=== PATIENT | female | born 1945 | race African-American/Black ===

== ENCOUNTER 2023-05-24 04:51 | Inpatient (IN) | payer OTHER, SELFPAY ==
[2023-05-23 23:17] VITALS: BMI 31.2
[2023-05-23 23:22] VITALS: BP 165/108
[2023-05-23 23:52] LABS: % Basophils 0.7 % (0-2); % Eosinophils 0.5 % (0-6); % Immature Granulocytes 0.3 % (0-0.5); % Lymphocytes 15.4 % (20.5-51.1); % Monocytes 9.3 % (1.7-9.3); % Neutrophils 73.8 % (42.2-75.2); Absolute Lymphocytes 0.9 10^3/uL (1.2-3.4); Absolute Monocytes 0.6 10^3/uL (0.1-0.6); Absolute Neutrophils 4.5 10^3/uL (1.4-6.5); Hematocrit 36.5 % (37.0-47.0); Mean Corp Hgb Conc. 35.6 g/dL (33.0-37.0); Mean Corpuscular Hgb 32.6 pg (27.0-31.0); Mean Corpuscular Volume 91.5 fL (81.0-99.0); Mean Platelet Volume 10.1 fL (7.4-10.4); Nucleated Red Blood Cells % 0 %; Platelet Count 189 10^3/uL (130-400); Red Blood Cell Count 3.99 10^6/uL (4.20-5.40); Red Cell Dist. Width 12.1 % (11.5-14.5)
[2023-05-24] VITALS (12 sets, daily range): BP systolic 119–175; BP diastolic 68–107
[2023-05-24 00:06] LABS: ALT (SGPT) 22 U/L (0-35); AST (SGOT) 27 U/L (14-36); Albumin 4.8 g/dl (3.5-5.0); Alkaline Phosphatase 90 U/L (38-126); Blood Urea Nitrogen 37 mg/dl (7-17); Calcium 10.1 mg/dl (8.4-10.2); Carbon Dioxide 27 mmol/L (22-30); Chloride 101 mmol/L (98-107); Estimated Creatinine Clearance 25 ml/min; Glucose 125 mg/dl (70-99); Potassium 3.9 mmol/L (3.5-5.1); Sodium 136 mmol/L (135-145); Total Bilirubin 0.6 mg/dl (0.2-1.3)
--- NOTE | 2023-05-24 00:30 | ED.GENMED ---
History of Present Illness
<MARTHA Williamson - Last Filed: 05/24/23 05:11>
General
Chief Complaint: Vomiting Blood
Source: patient
Exam Limitations: none
Time Seen by Provider: 05/24/23 00:12
Nursing documentation reviewed up to this point in time: agreed with
Travel History
Have you had any contact with someone who has COVID-19?: No
Do you have any symptoms of coronavirus? Fever > 100 degrees, chills, cough, shortness of breath, sore throat, loss of taste or smell, muscle aches, or headache?: No
History of Present Illness
History of Present Illness:
This is a 77 YOF with PMHx of GI bleeds, SBO, diverticulosis, HTN, HLD, Joyce's esophagus, colon cancer presenting for intractable vomiting with coffee ground emesis and abd pain. Pt mentioned nausea and lack of appetite began early evening of
05/22/23 and started with vomiting at 2300. Pt mentioned she has vomited approx [id number] most of yesterday and today. Hematemesis began around 1400 today, with greater than 1000cc coffee ground emesis. Abd pain cramping comes in waves, 9/10 in
severity and moderate epigastric burning pain. Accompanying bloating/distension. Pt mentioned having one previous episode like this in 2021, when she was dx with bowel obstruction and GI bleed. Pt had multiple BM today, normal texture, some
straining, denied any melena or hematochezia. Pt has not vomited since ED admit. Nausea is moderate at this time. Pt denied vision change, ear/eye/nose/throat pain, diff swallowing, sensory deficits. Physical exam significant for generalized abd
tenderness, worsened in LUQ and LLQ. Allergies to amlopdine, simvastatin.
Past History
<MARTHA Williamson - Last Filed: 05/24/23 05:11>
Past History
ED Past Medical History: Asthma, Cancer, GERD, HTN, Hypercholesterolemia, Other and Other
ED Past Surgical History: Appendectomy, Bowel resection and Gynecological
Social History
Tobacco: Non-smoker
Alcohol: None
Drug: None
Personal: Single
Living: alone
Employment: Retired
Family History
Family History: Other
Review of Systems
<Beatrice Moreno [facility] - Last Filed: 05/24/23 05:11>
Review of Systems
Allergies reviewed?: Yes
All Other Systems: ROS reviewed and negative except as documented in HPI and ROS
Constitutional: Reports fatigue
EENT: Reports no symptoms
Respiratory: Reports no symptoms
Cardiac: Reports no symptoms
ABD/GI: Reports abdominal pain and vomiting
: Reports no symptoms
Musculoskeletal: Reports no symptoms
Skin: Reports no symptoms
Neurological: Reports dizzy and weakness
Hematologic/Lymphatic: Reports bleeding
Psychiatric: Reports no symptoms
Phy Exam
<Beatrice Moreno [facility] - Last Filed: 05/24/23 05:11>
General Physical Exam
General Presentation: mild distress
General age: appears stated age
General Skin: warm, dry and pale
General Habitus: normal
General Mental: alert
General Hydration: dry mucous membranes
ENT Exam
ENT Exam: EOMI and neck supple
Eye Exam
Eye Exam: PERRL and EOMI
Cardiovascular Exam
Cardiovascular Exam: regular rate/rhythm, no edema, no gallop, no JVD, no murmur and normal peripheral pulses
Pulmonary Exam
Pulmonary Exam: lungs clear, no respiratory distress, no rales, chest non tender, no crackles, no rhonchi, no stridor, no wheezing and no cough
Gastrointestinal Exam
Gastrointestinal Exam: normal bowel sounds, soft, no pulsatile mass, distended, no masses and tender
Neurological Exam
Neurological Exam: alert, oriented x3, no motor deficits, no sensory deficits and speech normal
Musculoskeletal Exam
Musculoskeletal Exam: neuro vasc intact
Skin Exam
Skin Exam: warm/dry and pallor
Psychiatric Exam
Psychiatric Exam: normal mood/affect
Course
<MARTHA Williamson - Last Filed: 05/24/23 05:11>
Orders/Labs/Results
Orders:
Orders
05/23/23 23:42
Cardiac Monitoring- Treatment ONCE
Pulse Ox/spot Check [RESP] Urgent
Quantity: 1
Special Instructions: ON ROOM AIR
05/23/23 23:45
Type+Screen Urgent
Complete Blood Count/With Diff Urgent
Comprehensive Metabolic Panel Urgent
05/23/23 23:59
Electrocardiogram (*1) Urgent
Reason for Study: Chest Pain
EKG- Treatment ONCE
05/24/23 01:36
IV Insert/Care/Rem.- Treatment PRN
Octreotide [Sandostatin] 50 mcg IV NOW STA
Pantoprazole 80 mg/100 ml Nss [Protonix] 80 mg in 100 ml IV NOW
Pantoprazole [Protonix IV] 80 mg IV NOW STA
05/24/23 01:37
0.9% Sodium Chloride 1000 ml [Nss] 1,000 ml IV BOLUS
CR Obstruct Series W/pa Chest Urgent
Comment:
Reason For Exam: Gi bleed, hx of SBO
05/24/23 01:38
Ondansetron Injectable [Zofran] 4 mg IV NOW STA
05/24/23 01:41
Troponin I Urgent
05/24/23 04:35
Admit/Transfer Patient As Directed
Co-Sign Provider:
Level of Care: Inpatient admission
Assign to:: Telemetry
Physician / Group: Graham
Diagnosis: SBO, Hematemesis
Reason for Telemetry: Arrhythmia
Date to Stop Telemetry: 05/27/23
Time to Stop Telemetry: 11:00
Reason for Hospitalization: SBO, Hematemesis
Expected length of stay greater than two midnights?: Yes
ELOS- Estimated Length of Stay in days: 3
I certify the patient meets the requirements for IP care: Yes
05/24/23 04:36
Code Status As Directed
Resuscitation Status: Full Code
05/27/23 11:00
DC Protocol for Telemetry ONCE
Abnormal Lab Results
05/23/23
23:45
RBC 3.99 L 10^6/uL
(4.20-5.40)
Hct 36.5 L %
(37.0-47.0)
MCH 32.6 H pg
(27.0-31.0)
Absolute Lymphs (auto) 0.9 L 10^3/uL
(1.2-3.4)
Lymphocytes % 15.4 L %
(20.5-51.1)
BUN 37 H mg/dl
(7-17)
Creatinine 1.6 H mg/dL
(0.6-1.0)
Glucose 125 H mg/dl
(70-99)
05/23/23 23:45
05/23/23 23:45
Vital Signs
Initial and Last Documented VS:
Initial Vital Signs
Temp Pulse Resp BP Pulse Ox
98.7 F 108 20 165/108 96
05/23/23 23:22 05/23/23 23:22 05/23/23 23:22 05/23/23 23:22 05/23/23 23:22
Last Documented Vital Signs
Temp Pulse Resp BP Pulse Ox
98.7 F 97 16 175/85 96
05/23/23 23:22 05/24/23 02:00 05/24/23 02:00 05/24/23 02:00 05/23/23 23:22
Sayralt;Deo Oleary, DO - Last Filed: 05/24/23 02:49>
Orders/Labs/Results
Orders:
Orders
05/23/23 23:42
Cardiac Monitoring- Treatment ONCE
Pulse Ox/spot Check [RESP] Urgent
Quantity: 1
Special Instructions: ON ROOM AIR
05/23/23 23:45
Type+Screen Urgent
Complete Blood Count/With Diff Urgent
Comprehensive Metabolic Panel Urgent
05/23/23 23:59
Electrocardiogram (*1) Urgent
Reason for Study: Chest Pain
EKG- Treatment ONCE
05/24/23 01:36
IV Insert/Care/Rem.- Treatment PRN
Octreotide [Sandostatin] 50 mcg IV NOW STA
Pantoprazole 80 mg/100 ml Nss [Protonix] 80 mg in 100 ml IV NOW
Pantoprazole [Protonix IV] 80 mg IV NOW STA
05/24/23 01:37
0.9% Sodium Chloride 1000 ml [Nss] 1,000 ml IV BOLUS
CR Obstruct Series W/pa Chest Urgent
Comment:
Reason For Exam: Gi bleed, hx of SBO
05/24/23 01:38
Ondansetron Injectable [Zofran] 4 mg IV NOW STA
05/24/23 01:41
Troponin I Urgent
05/24/23 04:35
Admit/Transfer Patient As Directed
Co-Sign Provider:
Level of Care: Inpatient admission
Assign to:: Telemetry
Physician / Group: Graham
Diagnosis: SBO, Hematemesis
Reason for Telemetry: Arrhythmia
Date to Stop Telemetry: 05/27/23
Time to Stop Telemetry: 11:00
Reason for Hospitalization: SBO, Hematemesis
Expected length of stay greater than two midnights?: Yes
ELOS- Estimated Length of Stay in days: 3
I certify the patient meets the requirements for IP care: Yes
05/24/23 04:36
Code Status As Directed
Resuscitation Status: Full Code
05/27/23 11:00
DC Protocol for Telemetry ONCE
Abnormal Lab Results
05/23/23
23:45
RBC 3.99 L 10^6/uL
(4.20-5.40)
Hct 36.5 L %
(37.0-47.0)
MCH 32.6 H pg
(27.0-31.0)
Absolute Lymphs (auto) 0.9 L 10^3/uL
(1.2-3.4)
Lymphocytes % 15.4 L %
(20.5-51.1)
BUN 37 H mg/dl
(7-17)
Creatinine 1.6 H mg/dL
(0.6-1.0)
Glucose 125 H mg/dl
(70-99)
05/23/23 23:45
05/23/23 23:45
Vital Signs
Initial and Last Documented VS:
Initial Vital Signs
Temp Pulse Resp BP Pulse Ox
98.7 F 108 20 165/108 96
05/23/23 23:22 05/23/23 23:22 05/23/23 23:22 05/23/23 23:22 05/23/23 23:22
Last Documented Vital Signs
Temp Pulse Resp BP Pulse Ox
98.7 F 97 16 175/85 96
05/23/23 23:22 05/24/23 02:00 05/24/23 02:00 05/24/23 02:00 05/23/23 23:22
Sayralt;MARTHA Williamson - Last Filed: 05/24/23 05:11>
MDM/Problems Addressed
Differential Diagnosis Includes:
Bowel obstruction, Esophageal tear, peptic ulcer, duodenal ulcer
MDM/Problems Addressed:
77 YOF presenting with coffee ground emesis
Chronic conditions affecting care:
Diverticulosis, sigmoidectomy, previous bowel obstruction
Acute Exacerbation and/or Progression of Chronic Illness:
Diverticulosis, sigmoidectomy, previous bowel obstruction
<MARTHA Williamson - Last Filed: 05/24/23 05:11>
*Pulse Oximetry
Patient hypoxic: no
*Critical Care Note
Total Time (30-74mins, 75-104mins- exclusive of procedures): Not Applicable
<Deo Oleary DO - Last Filed: 05/24/23 02:49>
*Radiology
Radiology exam reviewed: preliminary read by ED provider (Bowel obstruction as evidenced by air-fluid level)
<Deo Oleary DO - Last Filed: 05/24/23 02:49>
Patient Management
Social determinants of health affecting care: Strong social support
Discussion with other providers: Hospitalist
<MARTHA Williamson - Last Filed: 05/24/23 05:11>
Update Note
Update Note:
05/24/23 0300: Pt is resting comfortably in bed. Pt admits that nausea, epigastric pain, and acid reflux are much improved. Pt informed of bowel obstruction via imaging and admission. Pt is agreeable to this plan. All pt questions answered.
ED Attending Note
<MARTHA Williamson - Last Filed: 05/24/23 05:11>
-
Portions of this chart may have been created with voice recognition software.� Occasional wrong word or��sound alike� substitutions may have occurred due to the inherent limitations of voice recognition software.
<Deo Oleary DO - Last Filed: 05/24/23 02:49>
ED Attending Note
Patient seen and examined by attending physician: Yes
I performed the substantive portion of visit, reviewed & personally made and approve the management plan that is documented in note by myself or OVIDIO.: Yes
ED Attending Note:
Pleasant 77-year-old female presents with intractable vomiting with coffee-ground emesis. Has been present for the last 2 days. Patient states that today around 2 PM, she developed hematemesis. She reports that these symptoms are similar to
previous episodes of small bowel obstruction. Patient does have a history of colon cancer, GI bleeds with small bowel obstruction., Patient denies chest pain or shortness of breath. Denies fever, chills, current vomiting but does report some
nausea. Patient was seen in conjunction with the PA student. I have reviewed and agree with the history and treatment plan presented. On my independent physical exam, patient is awake, alert, and oriented x3, minimal acute distress. Heart is
regular rate and rhythm. Lungs are clear to auscultation bilaterally without wheezes rales or rhonchi. Abdomen soft with tenderness to palpation and slight distention. Moves all 4 extremities.
Discharge Plan
Departure
Patient Disposition: Admit
Date of Disposition: 05/24/23
Time of Disposition: 02:48
Admit to: Telemetry
Presentation/result/management discussed w/ accepting MD/DO: Hospitalist
Condition: Good
Discharge Problem:
Bowel obstruction, Acute GI bleeding
Interventions
Interventions:
*Risk Screen - Suicide Last Done: 05/23/23 23:22
*General Assessment Last Done: 05/23/23 23:21
*Neglect/Abuse Screening Last Done: 05/23/23 23:21
*ED COVID-19 Vaccine History Last Done: 05/23/23 23:17
QO-Tnmjkw-Ixpnajbznn Assessment Last Done: 05/23/23 23:50
ED- Cardiac Assessment Last Done: 05/23/23 23:50
ED- Pulmonary Assessment Last Done: 05/23/23 23:50
[2023-05-24] MEDS: NSS 1000 IV (02:01)
[2023-05-24] MEDS: PROTONIX IV 80 MG IV (02:03)
[2023-05-24] MEDS: ZOFRAN 4 MG IV ×2 (02:05→19:43)
[2023-05-24] MEDS: SANDOSTATIN 50 MCG IV (02:07)
[2023-05-24 02:24] LABS: Troponin I < 0.012 ng/ml
[2023-05-24] MEDS: PROTONIX 100 IV (02:28)
--- NOTE | 2023-05-24 04:39 | HPS.HSE ---
Family Physician
-
Family Physician: Nati Dyer
Chief Complaint
-
N/V, hematemesis
History of Present Illness
Patient is a 77y F with PMH significant for hypertension, CKD and prior SBO complicated by Annette Farrell tears / GI Bleeding who presents to ED complaining of N/V and hematemesis. Patient states that she started with crampy abdominal pain on
Monday AM followed by multiple episodes of N/V. She has had persistent N/V for the past 48 hours. On Monday evening, patient noted that emesis started to appear grossly bloody. She estimates about 1/2 of an emesis bag full of blood in total.
Patient presented to the ED for further evaluation and treatment.
Patient has prior history of similar episodes. Her last such episode was 07/2021 and she was admitted here at that time.
Patient was treated in the ED with pain control and antiemetics and her symptoms have improved. She has had no emesis since arrival here.
Patient states that her last BM was yesterday AM. She has passed no flatus today.
Medical History
Past Medical History
Past Medical History: Reports Other
Additional Past Medical History:
Hypertension
Colon Cancer s/p Resection
Recurrent SBO
GERD
CKD III
Asthma
Past Surgical History: Reports Other
Additional Past Surgical History:
Partial Colon Resection
Bilateral Tubal Ligation
Appendectomy
Social History
Tobacco: Former Smoker (Quit smoking at age 34. )
Alcohol: None
Family History
Family History: Other (Father: Heart Disease Mother: Cerebral Aneurysm)
Allergies / Home Medications
Allergies reflects when Allergies were last updated in [employer]
Home Medications with original date entered in [employer]
Allergy/Medication List:
Allergies
Allergy/AdvReac Type Severity Reaction Status Date / Time
amlodipine Allergy Swelling Verified 05/23/23 23:17
simvastatin Allergy Unknown Verified 05/23/23 23:17
Home Medications
albuterol sulfate 90 mcg/actuation aerosol inhaler 2 puff inhalation R Q4HPRN PRN sob 07/28/17
dapagliflozin propanediol 10 mg tablet (Farxiga) 10 mg PO DAILY 05/23/23
coenzyme Q10 100 mg capsule (Co Q-10) 100 mg PO DAILY 05/24/23
esomeprazole magnesium 20 mg capsule,delayed release 20 mg PO DAILY 05/24/23
famotidine 20 mg tablet 20 mg PO HS 05/24/23
fluticasone furoate 100 mcg-vilanterol 25 mcg/dose inhalation powder (Breo Ellipta) 1 inh inhalation DAILY 05/24/23
lisinopril 20 mg-hydrochlorothiazide 12.5 mg tablet 2 tab PO DAILY 05/24/23
mecobalamin (vitamin B12) 1,000 mcg chewable tablet (B12 Active) 1,000 mcg PO DAILY 05/24/23
metoprolol succinate 25 mg tablet,extended release 24 hr 25 mg PO DAILY 05/24/23
multivitamin 2 tab PO DAILY 05/24/23
rosuvastatin 20 mg tablet 20 mg PO DAILY 05/24/23
Review of Systems
-
History Source: Patient
A 12 point ROS was completed and negative except as noted: Yes
Constitutional: Reports Fatigue; Denies Fever or Chills
Respiratory: Denies Cough or Trouble Breathing
Cardiac: Denies Chest Pain or Palpitations
Abdomen/GI: Reports Abdominal Pain, Nausea, Vomiting and Constipated; Denies Diarrhea
: Denies Dysuria or Frequency
Neurological: Denies Dizzy or Headache
Psych: Denies Depression or Anxiety
Physical Exam
Vital Signs
Vital Signs
Temp Pulse Resp BP Pulse Ox
98.7 F 97 16 175/85 96
05/23/23 23:22 05/24/23 02:00 05/24/23 02:00 05/24/23 02:00 05/23/23 23:22
Physical Exam
General: Other (77y F in no acute distress at present.)
HEENT: Moist mucous membranes and PERRLA
Respiratory: Clear; No Wheezes, Rales or Rhonchi
Cardiac: S1/S2 and Regular Rhythm; No Murmur
GI: Soft and Other (Softly distended. Mildly / diffusely tender. Bowel sound decreased but present.)
Musculoskeletal: No Clubbing, No Cyanosis and No Edema
Neuro: AO x 3
Laboratory Results
-
05/23/23 23:45
05/23/23 23:45
Laboratory Results
Total Bilirubin 0.6 mg/dl (0.2-1.3) 05/23/23 23:45
AST 27 U/L (14-36) 05/23/23 23:45
ALT 22 U/L (0-35) 05/23/23 23:45
Alkaline Phosphatase 90 U/L (38-126) 05/23/23 23:45
Troponin I < 0.012 ng/ml 05/24/23 01:41
Impression/Plan
-
A/P: Patient is a 77y F with PMH significant for hyprtension, CKD and recurrent SBO who presents to ED complaining of N/V x 2 days and development of hematemesis this evening.
SBO
Intractable N/V secondary to the above
- Admit for further evaluation and treatment.
- Continue supportive care with NPO, IVFs, antiemetics and pain control.
- No N/V since arrival and will avoid NG decompression if possible due to hematemesis / risk of UGI injury.
- Surgery evaluation for additional recommendations.
- Patient has not previously required intervention to resolve SBO.
- Follow for flatus, BM, improvement in symptoms.
Hematemesis
GERD
- Likely secondary to mucosal injury from intractable N/V - Annette-Farrell tear.
- Prior h/o same.
- IV PPI infusion.
- GI evaluation for additional recommendations.
- Treat SBO / intractable emesis as noted above.
- Follow H&H for any changes and transfuse if needed (initial Hgb = 13).
Benign Hypertension
- BP elevated in the ED - likely due to acute illness + lack of meds x 2 days.
- IV hydralazine while NPO.
- Resume usual BP meds once able.
CKD III
- Stable. Renal function is at / near known baseline.
- Hold Farxiga acutely (new med started only 5 days ago).
- Follow for changes in renal function.
Mild Intermittent Asthma
- Stable. Albuterol PRN.
DVT Prophylaxis: SCDs
Code Status: Full
[2023-05-24] MEDS: LR 1000 IV ×2 (05:44→15:58)
[2023-05-24 06:54] LABS: Hematocrit 33.4 % (37.0-47.0); Hemoglobin 11.3 g/dL (12.0-16.0); Mean Corp Hgb Conc. 33.8 g/dL (33.0-37.0); Mean Corpuscular Hgb 32.1 pg (27.0-31.0); Mean Corpuscular Volume 94.9 fL (81.0-99.0); Mean Platelet Volume 10.2 fL (7.4-10.4); Platelet Count 165 10^3/uL (130-400); Red Blood Cell Count 3.52 10^6/uL (4.20-5.40); Red Cell Dist. Width 12.2 % (11.5-14.5); White Blood Cell Count 4.2 10^3/uL (4.8-10.8)
[2023-05-24 07:15] LABS: Blood Urea Nitrogen 41 mg/dl (7-17); Calcium 9.5 mg/dl (8.4-10.2); Carbon Dioxide 26 mmol/L (22-30); Chloride 101 mmol/L (98-107); Estimated Creatinine Clearance 23 ml/min; Glucose 111 mg/dl (70-99); Potassium 3.6 mmol/L (3.5-5.1); Sodium 139 mmol/L (135-145); eGFR 28.31
--- NOTE | 2023-05-24 07:18 | CON.GI ---
Addendum entered and electronically signed by Catalina Linares MD 05/24/23 17:22:
I saw and examined the patient.
The LOAN OFFICER or PA's note was reviewed and I agree with the note.
Comment: 77-year-old female who is very well-known to me as outpatient , personal history of colon cancer status post sigmoid resection 91, history of GERD, Annette-Lanier tear, history of partial small bowel obstructions in the past presenting with
abdominal cramping, nausea and vomiting and CGE. Initially she had biliary emesis followed by CGE. No further episodes since. Similar to her previous admission when she had Partial small bowel obstruction,upper endoscopy at that time showed
Annette-Lanier tear . She is on Nexium on a daily basis. Currently continues to have some abdominal cramping but no vomiting. Since my visit, patient looks like he had cold symptoms and NG tube has been placed.
-Partial small bowel obstruction-abdominal cramping, nausea and vomiting previous similar episodes multiple electrolytes and replete.
currently with NG decompression
Monitor electrolytes and replete
Management per surgery
-1 episode of possible coffee-ground emesis
No further episodes, hemoglobin stable
Protonix IV twice daily
monitor H&H and transfuse if needed
No plans for upper endoscopy at this time.
Will follow for now
Original Note:
Consultation
-
Date/Time Consultation Requested: 05/24/23 @ 05:29
Date/Time Consultation Performed: 05/24/23 @ 09:00
Requesting Provider: Dr. Stevenson
Performing Provider: GENE Gilmore; Dr. Linares
Reason for Consultation: Hematemesis / Prob MW tear
Medical History
Chief Complaint / HPI
Chief Complaint: nausea, vomiting, hematemesis
History of Present Illness:
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
small bowel obstruction in 2019 and 2021 manage without surgical intervention, who presented to the ER with complaints of nausea, vomiting, and hematemesis. We are being asked to evaluate for hematemesis and probable MWT. Of note the patient is
known to Dr. Linares in the office last seen in March for routine care. At that time she had been doing well. The patient reports on Monday she developed significant nausea and vomiting with multiple episodes. She notes initially it was just
bilious emesis but did notice some blood/coffee-ground emesis yesterday. She admits this is similar to prior episodes of small bowel obstruction in the past. She does also admit to lower abdominal pain with cramping. She reports she has had
formed bowel movements most recently as of yesterday but notes that she did have an increased amount up to 6 times yesterday. She does take MiraLax daily for chronic constipation. She denies any melena or hematochezia. She denies any fevers or
chills. She denies any recent antibiotic use. She does note that she started on Farxiga about 5 days ago otherwise no new medications. She denies any unintentional weight loss, but has cut out sugars and has been losing some weight intentionally.
She reports prior to the onset of symptoms her appetite was okay. Her reflux is well-managed with esomeprazole in the morning and famotidine at night. She otherwise denies any dysphagia, odynophagia, reflux, chest pain, or shortness of breath.
Last EGD and colonoscopy as noted below. She denies alcohol use. She denies any significant NSAID use. She is not on blood thinners. Routine labs in the ER showed a Hgb 13.0, BUN 41, creatinine 1.8 on admission. Obstruction series on admission
showing nonspecific small bowel air-fluid filled levels without small bowel dilation with paucity of large bowel gas. Additional x-ray imaging of the abdomen was obtained with report pending. NG tube was deferred as she her nausea and vomiting had
subsided. She was started on IV fluids, PPI drip,. Analgesics, and admitted for further evaluation by GI and general surgery.
Past Medical History
Past Medical History: Asthma, Cancer (colon cancer s/p sigmoid resection in 1990), GERD, HTN, Hypercholesterolemia and Other (History of partial small bowel obstruction in 2019 and 2021 managed without surgical intervention, history of Joyce's
esophagus, Annette-Lanier tear/upper GI bleed, chronic constipation, chronic anemia)
Past Surgical History: Bowel Resection (Sigmoid resection), Gynecological (Bilateral tubal ligation) and Other (Appendectomy with abscess)
Social History
Tobacco: Non-Smoker
Alcohol: None
Drug: None
Family History
Family History: Reviewed & Not Pertinent
Allergies / Home Medications
Allergy/AdvReac Type Severity Reaction Status Date / Time
amlodipine Allergy Swelling Verified 05/23/23 23:17
simvastatin Allergy Unknown Verified 05/23/23 23:17
Medication Instructions Recorded
albuterol sulfate 90 mcg/actuation 2 puff inhalation R Q4HPRN PRN sob 07/28/17
aerosol inhaler
dapagliflozin propanediol 10 mg 10 mg PO DAILY 05/23/23
tablet (Farxiga)
coenzyme Q10 100 mg capsule (Co 100 mg PO DAILY 05/24/23
Q-10)
esomeprazole magnesium 20 mg 20 mg PO DAILY 05/24/23
capsule,delayed release
famotidine 20 mg tablet 20 mg PO HS 05/24/23
fluticasone furoate 100 1 inh inhalation DAILY 05/24/23
mcg-vilanterol 25 mcg/dose
inhalation powder (Breo Ellipta)
lisinopril 20 2 tab PO DAILY 05/24/23
mg-hydrochlorothiazide 12.5 mg
tablet
mecobalamin (vitamin B12) 1,000 1,000 mcg PO DAILY 05/24/23
mcg chewable tablet (B12 Active)
metoprolol succinate 25 mg 25 mg PO DAILY 05/24/23
tablet,extended release 24 hr
multivitamin 2 tab PO DAILY 05/24/23
rosuvastatin 20 mg tablet 20 mg PO DAILY 05/24/23
Review of Systems
-
History Source: Patient
Constitutional: Reports Weight Loss (Intentional)
EENT: Reports No Symptoms
Respiratory: Reports No Symptoms
Cardiac: Reports No Symptoms
Abdomen/GI: Reports Abdominal Pain, Nausea, Vomiting and Other (Coffee-ground emesis)
: Reports No Symptoms
Musculoskeletal: Reports No Symptoms
Skin: Reports No Symptoms
Neurological: Reports No Symptoms
Vital Signs
Temp Pulse Resp BP Pulse Ox
98.7 F 87 15 131/72 96
05/23/23 23:22 05/24/23 06:15 05/24/23 06:15 05/24/23 06:00 05/24/23 06:15
Physical Exam
Exam
General: Well Developed, Well Nourished and No Apparent Distress
HEENT: Normocephalic, Anicteric and Atraumatic
Respiratory: Clear
Cardiac: S1/S2 and Regular Rhythm
Breast: Deferred by me
GI: Soft, Tender (Generalized mild abdominal tenderness throughout), Distended and Other (Hypoactive bowel sounds)
Rectal: Deferred by Provider
Musculoskeletal: No Edema
Skin: Warm and Dry
Neuro: Awake, Alert and Oriented
Psych: Calm
Results
WBC 4.2 10^3/uL (4.8-10.8) L 05/24/23 06:34
Hgb 11.3 g/dL (12.0-16.0) L 05/24/23 06:34
Hct 33.4 % (37.0-47.0) L 05/24/23 06:34
MCV 94.9 fL (81.0-99.0) 05/24/23 06:34
Plt Count 165 10^3/uL (130-400) 05/24/23 06:34
Absolute Neuts (auto) 4.5 10^3/uL (1.4-6.5) 05/23/23 23:45
Sodium 139 mmol/L (135-145) 05/24/23 06:34
Potassium 3.6 mmol/L (3.5-5.1) 05/24/23 06:34
Chloride 101 mmol/L (98-107) 05/24/23 06:34
Carbon Dioxide 26 mmol/L (22-30) 05/24/23 06:34
BUN 41 mg/dl (7-17) H 05/24/23 06:34
Creatinine 1.8 mg/dL (0.6-1.0) H 05/24/23 06:34
Calcium 9.5 mg/dl (8.4-10.2) 05/24/23 06:34
Total Bilirubin 0.6 mg/dl (0.2-1.3) 05/23/23 23:45
AST 27 U/L (14-36) 05/23/23 23:45
ALT 22 U/L (0-35) 05/23/23 23:45
Alkaline Phosphatase 90 U/L (38-126) 05/23/23 23:45
Diagnostic Image Results:
05/24/2023 obstruction series: IMPRESSION: No acute cardiopulmonary process. Nonspecific small bowel air-fluid levels without small bowel dilatation. Paucity of large bowel gas.
Prior GI Procedures:
EGD: 05/11/2021, Dr. Linares: Rule duodenum, multiple gastric polyps. Medium size hiatal hernia. Esophageal mucosal changes secondary to established segment Joyce's esophagus. No gross lesions in the entire esophagus. Path showing fundic land
polyps. Esophageal biopsies negative for Joyce's esophagus, consistent with mild acute/chronic inflammation.
01/01/2018 Dr. Linares: Normal examined duodenum. Multiple gastric polyps. Biopsied. Medium-sized hiatal hernia. Esophageal mucosal changes suspicious for sort-segment Joyce's esophagus. Biopsied. Path negative for Joyce's, h pylori; +fundic
gland polyps
Colonoscopy: 05/01/2021, Dr. Linares: Fair prep. Ileum appeared normal. One 4 mm adenomatous polyp in the cecum removed. One 2 mm adenomatous polyp in the transverse colon removed. One 4 mm adenomatous polyp in the transverse colon removed.
Diverticulosis in the rectosigmoid colon, descending colon, and at the splenic flexure and the transverse colon. Evidence of previous surgery in the sigmoid colon.
Assessment / Plan
-
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
small bowel obstruction in 2019 and 2021 manage without surgical intervention, who presented to the ER with complaints of nausea, vomiting, and hematemesis. We are being asked to evaluate for hematemesis and probable MWT. Acute onset of nausea and
vomiting with subsequent coffee-ground emesis at home similar to prior episodes of small bowel obstruction. Imaging showing air-fluid levels of small bowel. Currently improving with bowel rest. Hemoglobin is stable, with a mild drop possibly
secondary to dilution. No active signs of bleeding currently. Pending CT imaging as per surgery.
Problem list:
-nausea, vomiting, hematemesis
-small bowel obstruction, with hx SBO partial SBO in 2019 and 2021 managed conservatively
-JOSE on CKD?
-hx colon cancer s/p sigmoid resection 1990
-hx annette lanier tear/UGIB
-GERD
-chronic anemia
-chronic constipation on MiraLax
Other pertinent medical hx:
-Hx Joyce's esophagus
-HTN
-asthma
-HLD
Recommendations:
-Etiology of symptoms likely secondary to small bowel obstruction. No recurrent vomiting since admitted to the emergency room, with reported coffee-ground emesis at home but this developed after subsequent episodes of vomiting at home. Likely
Annette-Lanier tear versus gastric contents secondary to obstruction
-At this time we will continue to monitor H&H
-Conservative management for small bowel obstruction as per surgery. NG tube deferred as vomiting has resolved
-Await CT of the abdomen and pelvis
-Continue PPI, will change to IV twice daily
-PRN analgesics and antiemetics
-If concern for ongoing bleeding to consider EGD pending clinical course
-Avoid NSAIDs
-Resume bowel regimen once all the obstruction is resolved
-Will follow
Data Reviewed
-
Radiology: Report Reviewed by me
Old Records: Reviewed
-
-
Thank you for consultation and allowing me to participate in the patient's care. Please call the motion picture projectionist apprentice GI physician during the after hours with any questions or concerns.
--- NOTE | 2023-05-24 07:52 | W.PN.HOSP.TC ---
Today's Communication/Plan
-
see A/P
Assessment / Plan
Assessment / Plan
77y F with PMH significant for hypertension, CKD and prior SBO complicated by Annette Farrell tears / GI Bleeding who presented to ED complaining of N/V and hematemesis.�
Patient states that she started with crampy abdominal pain on Monday AM followed by multiple episodes of N/V.� She has had persistent N/V for the past 48 hours.� On Monday evening, patient noted that emesis started to appear grossly bloody.� She
estimates about 1/2 of an emesis bag full of blood in total.�
Patient has prior history of similar episodes.� Her last such episode was 07/2021 and she was admitted here at that time.
Patient was treated in the ED with pain control and antiemetics and her symptoms have improved.� She has had no emesis since arrival here.
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
A/P:
# SBO
# Intractable N/V secondary to the above
Continue supportive care with NPO, IVFs, antiemetics and pain control.
No N/V since arrival and will avoid NG decompression if possible due to hematemesis / risk of UGI injury.
Surgery evaluation for additional recommendations.
Patient has not previously required intervention to resolve SBO.
Follow for flatus, BM, improvement in symptoms.
Check follow up AXR
# Hematemesis likely secondary to mucosal injury from intractable N/V - Annette-Farrell tear. Prior h/o same.
# GERD
IV PPI infusion.
GI evaluation for additional recommendations.
Treat SBO / intractable emesis as noted above.
Follow H&H for any changes and transfuse if needed (initial Hgb = 13).
# Acute anemia likely due to blood loss from Hematemesis and dilutional from IVF
Trend Hgb
Transfuse if needed
# Benign Hypertension
BP elevated in the ED - likely due to acute illness + lack of meds x 2 days.
IV hydralazine while NPO.
Resume usual BP meds once able.
# CKD IV
Stable.� Renal function is at / near known baseline.
Hold Farxiga acutely (new med started only 5 days ago).
Follow for changes in renal function.
# Mild Intermittent Asthma�- Stable.�
Albuterol PRN.
DVT Prophylaxis:� SCDs
Code Status:� Full
Anticipated Discharge: 24 - 48 hours
Subjective/Interval History
-
Date of Service: May 24, 2023
Objective Data
-
Labs:
Laboratory Results
05/23/23 05/24/23
23:45 06:34
WBC 6.0 4.2 L
Hgb 13.0 11.3 L
Hct 36.5 L 33.4 L
Plt Count 189 165
Sodium 136 139
Potassium 3.9 3.6
Chloride 101 101
Carbon Dioxide 27 26
BUN 37 H 41 H
Creatinine 1.6 H 1.8 H
Glucose 125 H 111 H
Calcium 10.1 9.5
Total Bilirubin 0.6
AST 27
ALT 22
Alkaline Phosphatase 90
Vital Signs:
Vital Signs
Temp Pulse Resp BP Pulse Ox
37.1 C 87 15 131/72 96
05/23/23 23:22 05/24/23 06:15 05/24/23 06:15 05/24/23 06:00 05/24/23 06:15
I&O
05/23/23 05/24/23 05/25/23
06:59 06:59 06:59
Intake Total 1180 / 1180
Balance 1180 / 1180
Review of Systems
-
Abdomen/GI: Reports Abdominal Pain and Nausea; Denies Vomiting
Physical Exam
-
General: Well Developed, Well Nourished, No Apparent Distress, Comfortable and Conversant; Negative Respiratory Distress
HEENT: Normocephalic, Atraumatic, Nose Appears Normal and Ears Appear Normal; Negative Oxygen
Respiratory: Clear to Auscultation and Non Labored Respirations; Negative Accessory Resp Muscle Use
Cardiac: Regular Rhythm and S1/S2
GI: Soft, Nondistended, Tender (diffuse) and Other (diminished bowel sound)
Skin: Warm and Dry
Neuro: Awake, Alert, Oriented and AO x 3
Psych: Calm and Intact Judgement/Insight
Data Reviewed
-
Diagnostic Radiology: Report Reviewed by me
Labs: Labs Reviewed by me
[2023-05-24] MEDS: DILAUDID 0.5 MG IV ×3 (08:13→19:47)
[2023-05-24] MEDS: KCL 270 MEQ IV (08:31)
--- NOTE | 2023-05-24 08:40 | EDRN ---
JCL IV rate at 45 ml/ hr d/t vein irriation concerns
--- NOTE | 2023-05-24 08:50 | CON.GS ---
Consultation
-
Requesting Provider: Graham
Performing Provider: Gunner
Reason for Consultation: SBO
Medical History
-
Chief Complaint: Abd pain / n/v
History of Present Illness:
77F with acute onset abd pain with n/v and hematemesis. Began two night ago. Had a normal BM yesterday with some relief but pain quickly returned. Localized to RLQ and across the lower abd without radiation. Reports improvement in pain and nausea
this am. Had this issue in the past multiple times, most recent 08/13, always managed non-op. Last abd operation open appy with [facility] in 2014 for perforated appendicitis with abscess/phlegmon.
Past Medical History
Past Medical History: Asthma, Cancer (colon), GERD, HTN, Renal Failure and Other (recurrent SBO)
Past Surgical History: Gynecological (tubal) and Other (sigmoidectomy for CA, open appy as per HPI)
Social History
Tobacco: Non-Smoker
Alcohol: None
Drug: None
Family History
Family History: Reviewed & Noncontributory
Allergies / Home Medications
Allergy/AdvReac Type Severity Reaction Status Date / Time
amlodipine Allergy Swelling Verified 05/23/23 23:17
simvastatin Allergy Unknown Verified 05/23/23 23:17
Medication Instructions Recorded Confirmed Type
albuterol sulfate 90 mcg/actuation 2 puff inhalation R Q4HPRN PRN sob 07/28/17 08/07/21 History
aerosol inhaler
dapagliflozin propanediol 10 mg 10 mg PO DAILY 05/23/23 05/24/23 History
tablet (Farxiga)
coenzyme Q10 100 mg capsule (Co 100 mg PO DAILY 05/24/23 05/24/23 History
Q-10)
esomeprazole magnesium 20 mg 20 mg PO DAILY 05/24/23 05/24/23 History
capsule,delayed release
famotidine 20 mg tablet 20 mg PO HS 05/24/23 05/24/23 History
fluticasone furoate 100 1 inh inhalation DAILY 05/24/23 05/24/23 History
mcg-vilanterol 25 mcg/dose
inhalation powder (Breo Ellipta)
lisinopril 20 2 tab PO DAILY 05/24/23 05/24/23 History
mg-hydrochlorothiazide 12.5 mg
tablet
mecobalamin (vitamin B12) 1,000 1,000 mcg PO DAILY 05/24/23 05/24/23 History
mcg chewable tablet (B12 Active)
metoprolol succinate 25 mg 25 mg PO DAILY 05/24/23 05/24/23 History
tablet,extended release 24 hr
multivitamin 2 tab PO DAILY 05/24/23 05/24/23 History
rosuvastatin 20 mg tablet 20 mg PO DAILY 05/24/23 05/24/23 History
Review of Systems
-
A 10 point review of systems was completed, and was negative except as per HPI.
Physical Exam
Vital Signs
Temp Pulse Resp BP Pulse Ox
98.7 F 93 14 119/68 94
05/23/23 23:22 05/24/23 08:15 05/24/23 08:15 05/24/23 08:00 05/24/23 08:00
05/23/23 05/24/23 05/25/23
06:59 06:59 06:59
Actual Weight 72.4 kg
Body Mass Index (BMI) 31.2
Lab Results
05/24/23 06:34
05/24/23 06:34
WBC 4.2 10^3/uL (4.8-10.8) L 05/24/23 06:34
Hgb 11.3 g/dL (12.0-16.0) L 05/24/23 06:34
Hct 33.4 % (37.0-47.0) L 05/24/23 06:34
Plt Count 165 10^3/uL (130-400) 05/24/23 06:34
Abs Immat Gran (auto) 0.0 10^3/uL (0-0.05) 05/23/23 23:45
Neutrophils % 73.8 % (42.2-75.2) 05/23/23 23:45
Physical Exam
General: Well Developed, Well Nourished and No Apparent Distress
GI: Soft, Non Distended and Tender (mild ttp to rlq/suprapubic area without guarding)
Skin: Warm and Dry
Neuro: AO x 3
Psych: Calm
Data Reviewed
-
Radiology: Image Personally Visualized and interpreted, Report Reviewed by me, Discussed with Physician, Discussed with Nurse and Discussed with Patient
Labs: Labs Reviewed by me
Old Records: Reviewed
Assessment / Plan
-
77F with presumed SBO likely 2/2 adhesions
AFVSS, clinically improving however o bowel function since admit
Labs unremarkable, CKD noted
Flat plates of the abdomen show some dilated sb loops with air
Plan:
NPO/IVF
Defer NGT for now as she denies nausea
CT A/P with PO contrast
Serial exams
DVT ppx
Will follow
[2023-05-24] MEDS: OMNIPAQUE 50 ML PO (09:01)
--- NOTE | 2023-05-24 13:52 | W.PN.UPDATE ---
Update Note
Progress Note Update
CT reviewed. Dilated proximal small bowel and decompressed terminal ileum with stool in the colon and sb feces sign. No clear transition point though the RLQ is the area of concern. No signs of bowel threat or compromise. Cont trial of nonop mgmt
with NPO/IVF. F/U KUB ordered for the am to follow the contrast.
--- NOTE | 2023-05-24 15:56 | W.PN.UPDATE ---
Update Note
Progress Note Update
Pt seen and evaluated at bedside. Increased in lower abd cramping and nausea. No vomiting. No ROBF. Recommended NGT and pt agreed. Will order.
[2023-05-24] MEDS: PROTONIX IV 40 MG IV (19:42)
[2023-05-24] MEDS: NSS (PRESERVATIVE FREE) 10 ML IV (19:43)
[2023-05-24] MEDS: FLUSH (NSS) 2 FLUSH IV (19:45)
[2023-05-24] MEDS: CHLORASEPTIC/SORE THROAT SPRAY 1 SPRAY PO (19:58)
[2023-05-25] VITALS (11 sets, daily range): BP systolic 123–145; BP diastolic 68–89; BMI 31.5
[2023-05-25] MEDS: DILAUDID 0.5 MG IV ×2 (01:03→23:56)
[2023-05-25] MEDS: LR 1000 IV ×2 (01:04→11:24)
[2023-05-25] MEDS: FLUSH (NSS) 1 FLUSH IV (01:04)
[2023-05-25] MEDS: CHLORASEPTIC/SORE THROAT SPRAY 1 SPRAY PO ×2 (01:47→08:36)
[2023-05-25] MEDS: ZOFRAN 4 MG IV (01:48)
[2023-05-25 08:00] LABS: Hematocrit 30.8 % (37.0-47.0); Hemoglobin 10.4 g/dL (12.0-16.0); Mean Corp Hgb Conc. 33.8 g/dL (33.0-37.0); Mean Corpuscular Volume 94.8 fL (81.0-99.0); Mean Platelet Volume 10.5 fL (7.4-10.4); Platelet Count 164 10^3/uL (130-400); Red Blood Cell Count 3.25 10^6/uL (4.20-5.40); White Blood Cell Count 4.7 10^3/uL (4.8-10.8)
[2023-05-25] MEDS: NSS (PRESERVATIVE FREE) IV (08:36)
[2023-05-25] MEDS: PROTONIX IV IV (08:36)
--- NOTE | 2023-05-25 08:36 | W.PN.GS2 ---
Today's Communication / Plan
-
`
Assessment / Plan
-
Assessment: 77 y/o female with recurrent SBO
remote h/o laparotomy and bowel resection, more recent h/o open appy in 2017 - recurrent SBOs since open appy
AF - tachycardia noted
subjectively improved with NGT decompression
Plan: maintain NGT
follow up Abd xray today
Subjective Data
-
Date of Service: May 25, 2023
pt seen and examined
subjectively feeling better. not much flatus, but 2 loose BMs
distention but improving as well per patient
no N/V with NGT
Objective Data
-
Intake and Output
05/24/23 05/25/23 05/26/23
06:59 06:59 06:59
Intake Total 1180 / 1180 1200 / 1200
Output Total 300 / 300 150 / 150
Balance 1180 / 1180 900 / 900 -150 / -150
Intake:
IV fluids (Total) 1100 / 1100 1200 / 1200
Lr 1,000 ml @ 100 mls/hr IV . 1100 / 1100
Q10H AURELIA Rx#:[id number]
IV piggybacks 80 / 80
Lr 1,000 ml @ 100 mls/hr IV . 80 / 80
Q10H AURELIA Rx#:[id number]
Output:
Emesis 300 / 300
Gastrointestinal tube output ( 150 / 150
Total)
[place] Sump 150 / 150
Other:
Number of unmeasured voidings 2
Number of approximated MODERATE 2
amounts of urine
Vital Signs
Temp Pulse Resp BP Pulse Ox
98.6 F 117 18 136/89 95
05/25/23 02:44 05/25/23 02:44 05/25/23 02:44 05/25/23 02:44 05/25/23 02:44
Lab Results
05/25/23 07:13
Calcium 9.5 mg/dl (8.4-10.2) 05/24/23 06:34
Total Bilirubin 0.6 mg/dl (0.2-1.3) 05/23/23 23:45
AST 27 U/L (14-36) 05/23/23 23:45
ALT 22 U/L (0-35) 05/23/23 23:45
Alkaline Phosphatase 90 U/L (38-126) 05/23/23 23:45
Total Protein 8.0 g/dl (6.3-8.2) 05/23/23 23:45
Albumin 4.8 g/dl (3.5-5.0) 05/23/23 23:45
Physical Exam
-
NAD AAOx3
ABD: softly distended and tympanitic. mild tenderness without R/R/G. localizing more to RLQ
[2023-05-25 08:37] LABS: Blood Urea Nitrogen 33 mg/dl (7-17); Calcium 8.7 mg/dl (8.4-10.2); Carbon Dioxide 28 mmol/L (22-30); Chloride 102 mmol/L (98-107); Estimated Creatinine Clearance 24 ml/min; Glucose 87 mg/dl (70-99); Magnesium 1.8 mg/dl (1.6-2.3); Sodium 134 mmol/L (135-145); eGFR 30.32
[2023-05-25 08:54] LABS: Potassium 4.1 mmol/L (3.5-5.1)
--- NOTE | 2023-05-25 09:40 | W.PN.HOSP.TC ---
Today's Communication/Plan
-
see A/P
Assessment / Plan
Assessment / Plan
77y F with PMH significant for hypertension, CKD and prior SBO complicated by Annette Farrell tears / GI Bleeding who presented to ED complaining of N/V and hematemesis.�
Patient states that she started with crampy abdominal pain on Monday AM followed by multiple episodes of N/V.� She has had persistent N/V for the past 48 hours.� On Monday evening, patient noted that emesis started to appear grossly bloody.� She
estimates about 1/2 of an emesis bag full of blood in total.�
Patient has prior history of similar episodes.� Her last such episode was 07/2021 and she was admitted here at that time.
Patient was treated in the ED with pain control and antiemetics and her symptoms have improved.� She has had no emesis since arrival here.
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
A/P:
# Intractable N/V secondary to SBO from adhesion
Continue supportive care with NPO, IVFs, antiemetics and pain control.
s/p NGT placement 05/24
Surgery on board
# Hematemesis likely secondary to mucosal injury from intractable N/V - Annette-Farrell tear. Prior h/o same.
# GERD
PPI IV BID
monitor Hgb
GI on board, no plans for upper endoscopy at this time.
# Acute anemia likely due to blood loss from Hematemesis and dilutional from IVF
Trend Hgb
Transfuse if needed
# Benign Hypertension
BP elevated in the ED - likely due to acute illness + lack of meds x 2 days.
IV hydralazine while NPO.
Resume usual BP meds once able.
# CKD IV
Stable.� Renal function is at / near known baseline.
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
Follow for changes in renal function.
# Mild Intermittent Asthma�- Stable.�
Albuterol PRN.
DVT Prophylaxis:� SCDs
Code Status:� Full
Anticipated Discharge: 24 - 48 hours
Subjective/Interval History
-
Date of Service: May 25, 2023
Objective Data
-
Labs:
Laboratory Results
05/25/23
07:13
WBC 4.7 L
Hgb 10.4 L
Hct 30.8 L
Plt Count 164
Sodium 134 L
Potassium 4.1
Chloride 102
Carbon Dioxide 28
BUN 33 H
Creatinine 1.7 H
Glucose 87
Calcium 8.7
Vital Signs:
Vital Signs
Temp Pulse Resp BP Pulse Ox
36.9 C 90 18 140/80 98
05/25/23 07:00 05/25/23 07:00 05/25/23 07:00 05/25/23 07:00 05/25/23 07:00
I&O
05/24/23 05/25/23 05/26/23
06:59 06:59 06:59
Intake Total 1180 / 1180 1200 / 1200
Output Total 300 / 300 150 / 150
Balance 1180 / 1180 900 / 900 -150 / -150
Review of Systems
-
All other systems: Reviewed and negative
Physical Exam
-
General: Well Developed, Well Nourished, No Apparent Distress, Comfortable and Conversant; Negative Respiratory Distress
HEENT: Normocephalic, Atraumatic, Nose Appears Normal, Ears Appear Normal and Other (NGT on intermittent suction ); Negative Oxygen
Respiratory: Clear to Auscultation and Non Labored Respirations; Negative Accessory Resp Muscle Use
Cardiac: Regular Rhythm and S1/S2
GI: Soft, Nontender, Nondistended and Tender (diffuse)
Skin: Warm and Dry
Neuro: Awake, Alert, Oriented and AO x 3
Psych: Calm and Intact Judgement/Insight
Data Reviewed
-
Diagnostic Radiology: Report Reviewed by me
CT Scan: Report Reviewed by me
Labs: Labs Reviewed by me
--- NOTE | 2023-05-25 12:10 | W.PN.SURGUPD ---
Surgical Update
Surgical Update
Patient seen in follow-up. 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
While there is no evidence of immediate bowel threat or closed-loop obstruction/complete obstruction given patient's multiple hospitalizations and prior CT imaging all identifying a similar transition point in the right lower quadrant we discussed
option for surgical management in an effort to reduce recurrence risk.
Patient states that she wants to minimize any chance of having recurrent small bowel obstructions as this is her fifth episode since 2014 and has had multiple hospitalizations for obstructive symptoms. Between these episodes she has gurgling and
bloating and discomfort in the right lower quadrant suggestive of a chronic partial obstruction as well.
Diagnostic laparoscopy, possible laparotomy, lysis of adhesions, possible bowel resection was reviewed in detail the patient including the operative technique, potential operative findings and their management. We discussed alternative treatment
options including continued nonoperative management. We discussed benefits and risks of surgery such as but not limited to bleeding, infectious or wound related complications, iatrogenic injury to surrounding viscera, anastomotic related
complications if bowel resection performed as well as risk for creation of adhesions from surgical procedure that could lead to future bowel obstructions.
Any of the patient's concerns or questions were fully addressed and written informed consent was obtained.
Patient is on the OR schedule for today
[facility] on-call to the OR
--- NOTE | 2023-05-25 12:41 | PTCARENOTE ---
Pt left the floor with RN and transport to the OR for procedure. Pt was wiped, cleaned, IV capped, NG clamped. Pt stable
--- NOTE | 2023-05-25 13:12 | W.SUR.PREOP ---
Pre-Operative Surgical Note
-
I have examined this patient prior to the performance of the scheduled procedure.
The patient's condition is unchanged from the time of the current History and
Physical and the patient is able to undergo the scheduled procedure.
[2023-05-25] MEDS: INVANZ 60 MG IV (13:39)
--- NOTE | 2023-05-25 16:09 | CM ---
Alert awake oriented patient who lives alone in an apartment with an elevator. She is independent in driving and all activities of daily living.She has supportive friends and neighbors. Currently has an NG tube NPO.Offered VN she declined.
No SNF/[facility] hx
Pharmacy [facility] [place]
PCP Dr Dyer
PLAN Home no anticipated needs
--- NOTE | 2023-05-25 16:25 | W.IMMPOSTOP ---
Addendum entered and electronically signed by Artur Song MD 05/31/23 08:08:
#[id number]
Original Note:
Surgical Immed Post Op Note
-
Primary Surgeon: Duncan
Assisting Surgeon: None
Pre-op Diagnosis: recurrent partial SBO
Post-op Diagnosis: recurrent partial SBO
Procedure Performed: Laparoscopic assisted Lysis of adhesions
Anesthesia Type: GETA + 0.25% Marcaine
Specimen / Cultures: None
Estimated Blood Loss: 50mL
Complications: none immediate
Operative Findings: Omental adhesions to anterior abdominal wall. Dense adhesion from mid ileum to midline abdominal wall/omental adhesion with resultant high-grade partial small bowel obstruction. Numerous additional small bowel adhesions in
right lower quadrant and pelvis which were lysed. No enterotomies. No serosal injuries. There were additional more proximal small bowel adhesions, nonobstructive, which were not lysed.
Plan: NG tube decompression postop awaiting GI recovery, expecting somewhat delayed GI function postop given length of operative procedure and degree of lysis of adhesions.
Reyna catheter postop
IV fluid hydration
Repeat labs in a.m.
Chi Velazquez updated postop via phone call.
[2023-05-25] MEDS: NSS 1000 IV (17:19)
[2023-05-25] MEDS: DILAUDID 0.25 MG IV ×2 (18:06→21:55)
--- NOTE | 2023-05-25 19:30 | W.PN.UPDATE ---
Update Note
Progress Note Update
Patient had Laparoscopic assisted lysis of adhesions today
Brown stool without any further GI bleeding
Continue Protonix 40 mg IV twice daily while inpatient and 40 mg p.o. twice daily at discharge.
Will see her back in the office in follow-up in 3 months.
Will sign off, please call back if needed
[2023-05-25] MEDS: NSS (PRESERVATIVE FREE) 10 ML IV (20:10)
[2023-05-25] MEDS: PROTONIX IV 40 MG IV (20:10)
[2023-05-26 03:10] VITALS: BP 140/76
[2023-05-26] MEDS: NSS 1000 IV ×2 (03:26→17:18)
[2023-05-26] MEDS: DILAUDID 0.5 MG IV ×4 (05:14→22:59)
[2023-05-26 06:00] VITALS: BMI 32.1
[2023-05-26 07:08] LABS: Hematocrit 30.8 % (37.0-47.0); Hemoglobin 10.5 g/dL (12.0-16.0); Mean Corp Hgb Conc. 34.1 g/dL (33.0-37.0); Mean Corpuscular Hgb 32.9 pg (27.0-31.0); Mean Corpuscular Volume 96.6 fL (81.0-99.0); Mean Platelet Volume 10.2 fL (7.4-10.4); Platelet Count 149 10^3/uL (130-400); Red Blood Cell Count 3.19 10^6/uL (4.20-5.40); White Blood Cell Count 3.8 10^3/uL (4.8-10.8)
[2023-05-26 07:10] VITALS: BP 138/73
[2023-05-26 07:30] LABS: Blood Urea Nitrogen 26 mg/dl (7-17); Calcium 7.6 mg/dl (8.4-10.2); Carbon Dioxide 27 mmol/L (22-30); Chloride 102 mmol/L (98-107); Estimated Creatinine Clearance 32 ml/min; Glucose 100 mg/dl (70-99); Potassium 4.4 mmol/L (3.5-5.1); Sodium 135 mmol/L (135-145); eGFR 41.83
[2023-05-26] MEDS: PROTONIX IV 40 MG IV ×2 (08:50→20:01)
[2023-05-26] MEDS: NSS (PRESERVATIVE FREE) 10 ML IV ×2 (08:51→20:00)
--- NOTE | 2023-05-26 09:00 | W.PN.GS2 ---
Today's Communication / Plan
-
DC Reyna. Out of bed and ambulate.
Await return of bowel function
Assessment / Plan
-
Assessment: 77 y/o female with recurrent SBO now status POD #1 diagnostic laparoscopy, mini laparotomy and lysis of adhesions. Doing well, expected postoperative course
Continue current pain control regimen.
Continue NG tube to low intermittent wall suction, until return of bowel function.
Out of bed and ambulate today.
Okay to DC Reyna.
Surgery will continue to follow.
Time Spent
Total Time Spent with Patient (in minutes): 10
Subjective Data
-
Date of Service: May 26, 2023
Interval Events:
No acute events overnight. Slept well. Pain Controlled. Denies Nausea/Vomiting, -bowel function. NG tube with light bilious/gastric contents.
Objective Data
-
Intake and Output
05/25/23 05/26/23 05/27/23
06:59 06:59 06:59
Intake Total 1200 / 1200 1190 / 1190
Output Total 300 / 300 1770 / 1770
Balance 900 / 900 -580 / -580
Intake:
IV fluids (Total) 1200 / 1200 1100 / 1100
normosol 100 / 100
Amount instilled into GI Tube ( 90 / 90
Total)
[place] Sump 90 / 90
Output:
Emesis 300 / 300
Gastrointestinal tube output ( 270 / 270
Total)
[place] Sump 270 / 270
Urine, Reyna 1500 / 1500
Other:
Number of approximated MODERATE 2
amounts of urine
Vital Signs
Temp Pulse Resp BP Pulse Ox
98.2 F 97 18 138/73 96
05/26/23 07:10 05/26/23 07:10 05/26/23 07:10 05/26/23 07:10 05/26/23 07:10
Lab Results
05/26/23 06:35
05/26/23 06:35
Calcium 7.6 mg/dl (8.4-10.2) L 05/26/23 06:35
Magnesium 1.8 mg/dl (1.6-2.3) 05/25/23 07:13
Total Bilirubin 0.6 mg/dl (0.2-1.3) 05/23/23 23:45
AST 27 U/L (14-36) 05/23/23 23:45
ALT 22 U/L (0-35) 05/23/23 23:45
Alkaline Phosphatase 90 U/L (38-126) 05/23/23 23:45
Total Protein 8.0 g/dl (6.3-8.2) 05/23/23 23:45
Albumin 4.8 g/dl (3.5-5.0) 05/23/23 23:45
Physical Exam
-
GENERAL/NEURO: Awake, Alert, no distress
CHEST: Unlabored breathing on RA, NG tube with light bilious/gastric contents.
ABDOMEN: Soft, Non-Tender, Non-Distended, incisions clean dry and intact.
--- NOTE | 2023-05-26 10:39 | W.PN.HOSP.TC ---
Today's Communication/Plan
-
see bold
Assessment / Plan
Assessment / Plan
77y F with PMH significant for hypertension, CKD and prior SBO complicated by Annette Farrell tears / GI Bleeding who presented to ED complaining of N/V and hematemesis.�
Patient states that she started with crampy abdominal pain on Monday AM followed by multiple episodes of N/V.� She has had persistent N/V for the past 48 hours.� On Monday evening, patient noted that emesis started to appear grossly bloody.� She
estimates about 1/2 of an emesis bag full of blood in total.�
Patient has prior history of similar episodes.� Her last such episode was 07/2021 and she was admitted here at that time.
Patient was treated in the ED with pain control and antiemetics and her symptoms have improved.� She has had no emesis since arrival here.
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
Gen: NAD, AAOx3.
Eyes: EOMI, PERRLA, no scleral icterus.
Neck: supple.
CV: RRR, +S1/S2, no m/r/g.
Resp: CTAB, no rales, wheezes, or rhonchi.
Abd: +BS, soft, +TTP, mild distention
Skin: No rashes.
Neuro: CN 2-12 intact, non-focal.
Psych: Normal mood and affect.
Intractable N/V secondary to SBO from adhesion:
-s/p NGT placement 05/24/22
-cont IVFs/pain control/NPO
-surgery following
Hematemesis:
-likely secondary to mucosal injury (Annette-Farrell tear) from intractable N/V
-also h/o GERD
-cont PPI IV BID
-GI following, no plans for upper endoscopy at this time
-hemoglobin stable from yesterday
Acute blood loss anemia due to hematemesis:
-also component of dilutional anemia from IV fluids
-hemoglobin stable from yesterday
Other problems:
Essential Hypertension: Home ACEi/BB/HCTZ on hold
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 Farxiga, started just prior to admission, on hold
Mild Intermittent Asthma: Albuterol PRN
FULL/SCDs
Anticipated Discharge: > 48 hours
Subjective/Interval History
-
Date of Service: May 26, 2023
Still with abd pain, no BM.
Objective Data
-
Labs:
Laboratory Results
05/26/23
06:35
WBC 3.8 L
Hgb 10.5 L
Hct 30.8 L
Plt Count 149
Sodium 135
Potassium 4.4
Chloride 102
Carbon Dioxide 27
BUN 26 H
Creatinine 1.3 H
Glucose 100 H
Calcium 7.6 L
Vital Signs:
Vital Signs
Temp Pulse Resp BP Pulse Ox
98.2 F 97 18 138/73 96
05/26/23 07:10 05/26/23 07:10 05/26/23 07:10 05/26/23 07:10 05/26/23 07:10
I&O
05/25/23 05/26/23 05/27/23
06:59 06:59 06:59
Intake Total 1200 / 1200 1190 / 1190
Output Total 300 / 300 1770 / 1770
Balance 900 / 900 -580 / -580
[2023-05-26 11:13] VITALS: BP 136/81
--- NOTE | 2023-05-26 12:02 | CM ---
Chart reviewed. Spoke with pt at bedside
Remains NPO. NGT to sx
CM will cont to follow for d/c needs
Plan - d/c to previous setting needs tbd
[2023-05-26 15:15] VITALS: BP 152/89
--- NOTE | 2023-05-26 19:20 | PTCARENOTE ---
Received patient this am AAOx3. Pt NPO with IVF infusing without difficulty. NGT draining brown drainage. OOB to chair an tolerated well. Reyna discontinued at 1015 am. Pt with no urge to urinate. 1630 Patient bladder scanned for 92 ml.
Made aware. Pt complained of pain abdominal incisions. Medicated with Dilaudid IV with relief. Made patient comfortable. Cont to assess patient status.
[2023-05-26] MEDS: NSS 500 IV (19:32)
[2023-05-26] MEDS: CHLORASEPTIC/SORE THROAT SPRAY 1 SPRAY PO (19:35)
--- NOTE | 2023-05-26 19:41 | PTCARENOTE ---
1900 Pt still has not voided after Reyna being discontinued at 1015. DIRECTOR OF SPEECH PATHOLOGY made aware. NSS 500 Ml bolus ordered an started. cont to assess patient status.
[2023-05-26 20:40] VITALS: BP 133/82
[2023-05-26 23:53] VITALS: BP 135/75
[2023-05-27 04:21] VITALS: BMI 32.5
[2023-05-27 04:28] VITALS: BP 147/89
[2023-05-27] MEDS: NSS IV (04:49)
[2023-05-27 07:10] VITALS: BP 128/79
[2023-05-27 07:33] LABS: Hematocrit 27.5 % (37.0-47.0); Hemoglobin 9.3 g/dL (12.0-16.0); Mean Corp Hgb Conc. 33.8 g/dL (33.0-37.0); Mean Corpuscular Hgb 32.7 pg (27.0-31.0); Mean Corpuscular Volume 96.8 fL (81.0-99.0); Mean Platelet Volume 10.6 fL (7.4-10.4); Platelet Count 153 10^3/uL (130-400); Red Blood Cell Count 2.84 10^6/uL (4.20-5.40); Red Cell Dist. Width 12.2 % (11.5-14.5); White Blood Cell Count 6.5 10^3/uL (4.8-10.8)
[2023-05-27 08:01] LABS: Blood Urea Nitrogen 19 mg/dl (7-17); Calcium 7.7 mg/dl (8.4-10.2); Carbon Dioxide 22 mmol/L (22-30); Chloride 106 mmol/L (98-107); Estimated Creatinine Clearance 32 ml/min; Glucose 72 mg/dl (70-99); Potassium 3.7 mmol/L (3.5-5.1); Sodium 135 mmol/L (135-145); eGFR 41.83
[2023-05-27] MEDS: NSS (PRESERVATIVE FREE) 10 ML IV ×2 (08:35→20:57)
[2023-05-27] MEDS: PROTONIX IV 40 MG IV ×2 (08:35→20:57)
[2023-05-27] MEDS: DILAUDID 0.5 MG IV ×3 (08:44→23:46)
[2023-05-27] MEDS: NSS 1000 IV ×2 (08:47→20:57)
--- NOTE | 2023-05-27 09:32 | W.PN.GS2 ---
Today's Communication / Plan
-
continue ngt
await bowel function
Assessment / Plan
-
Assessment: 77 y/o female with recurrent SBO now status POD #2 diagnostic laparoscopy, mini laparotomy and lysis of adhesions. Doing well, expected postoperative course
Continue current pain control regimen.
Continue NG tube to low intermittent wall suction, until return of bowel function. 450ml output in 24 hours.
Out of bed and ambulate today.
Voiding post coleman removal
Surgery will continue to follow.
Subjective Data
-
Date of Service: May 27, 2023
Patient states she feels 'a lot better'. She has no pain. She has no nausea. She still feels distended. She has not had flatus or bowel movements yet.
Objective Data
-
Intake and Output
05/26/23 05/27/23 05/28/23
06:59 06:59 06:59
Intake Total 1190 / 1190 2480 / 2480
Output Total 1770 / 1770 1025 / 1025
Balance -580 / -580 1455 / 1455
Intake:
IV fluids (Total) 1100 / 1100 2300 / 2300
normosol 100 / 100
Amount instilled into GI Tube ( 90 / 90 180 / 180
Total)
[place] Sump 90 / 90 180 / 180
Output:
Gastrointestinal tube output ( 270 / 270 450 / 450
Total)
[place] Sump 270 / 270 450 / 450
Urine, [place] 1500 / 1500 125 / 125
Urine, Voided 450 / 450
Vital Signs
Temp Pulse Resp BP Pulse Ox
99.2 F 119 18 128/79 95
05/27/23 07:10 05/27/23 07:10 05/27/23 07:10 05/27/23 07:10 05/27/23 07:10
Lab Results
05/27/23 06:14
05/27/23 06:14
Calcium 7.7 mg/dl (8.4-10.2) L 05/27/23 06:14
Magnesium 1.8 mg/dl (1.6-2.3) 05/25/23 07:13
Total Bilirubin 0.6 mg/dl (0.2-1.3) 05/23/23 23:45
AST 27 U/L (14-36) 05/23/23 23:45
ALT 22 U/L (0-35) 05/23/23 23:45
Alkaline Phosphatase 90 U/L (38-126) 05/23/23 23:45
Total Protein 8.0 g/dl (6.3-8.2) 05/23/23 23:45
Albumin 4.8 g/dl (3.5-5.0) 05/23/23 23:45
Physical Exam
-
GENERAL/NEURO: Awake, Alert, no distress
CHEST: Unlabored breathing on RA, NG tube with light bilious/gastric contents.
ABDOMEN: Soft, Non-Tender, a little distended, incisions clean dry and intact.
[2023-05-27 11:00] VITALS: BP 140/84
--- NOTE | 2023-05-27 14:19 | W.PN.HOSP.TC ---
Today's Communication/Plan
-
Contiue current plan
Assessment / Plan
Assessment / Plan
77y F with PMH significant for hypertension, CKD and prior SBO complicated by Annette Farrell tears / GI Bleeding who presented to ED complaining of N/V and hematemesis.�
Patient states that she started with crampy abdominal pain on Monday AM followed by multiple episodes of N/V.� She has had persistent N/V for the past 48 hours.� On Monday evening, patient noted that emesis started to appear grossly bloody.� She
estimates about 1/2 of an emesis bag full of blood in total.�
Patient has prior history of similar episodes.� Her last such episode was 07/2021 and she was admitted here at that time.
Patient was treated in the ED with pain control and antiemetics and her symptoms have improved.� She has had no emesis since arrival here.
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
Initial exam:
Gen: NAD, AAOx3.
Eyes: EOMI, PERRLA, no scleral icterus.
Neck: supple.
CV: RRR, +S1/S2, no m/r/g.
Resp: CTAB, no rales, wheezes, or rhonchi.
Abd: +BS, soft, +TTP, mild distention
Skin: No rashes.
Neuro: CN 2-12 intact, non-focal.
Psych: Normal mood and affect.
1. Intractable N/V secondary to SBO from adhesion:
-s/p NGT placement 05/24/22
-surgery following
-cont IVFs/pain control/NPO
2. Hematemesis:
-likely secondary to mucosal injury (Annette-Farrell tear) from intractable N/V
-GI following
-hemoglobin stable from yesterday
-also h/o GERD
-cont PPI IV BID
3. Acute blood loss anemia due to hematemesis:
-also component of dilutional anemia from IV fluids
-hemoglobin stable from yesterday
-Follow daily
Other problems:
Essential Hypertension: Home ACEi/BB/HCTZ on hold
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 Farxiga, started just prior to admission, on hold
Mild Intermittent Asthma: Albuterol PRN
Code FULL
DVTp SCDs
Anticipated Discharge: > 48 hours
Subjective/Interval History
-
Date of Service: May 27, 2023
Feels OK. REcovering well.
Objective Data
-
Labs:
Laboratory Results
05/27/23
06:14
WBC 6.5
Hgb 9.3 L
Hct 27.5 L
Plt Count 153
Sodium 135
Potassium 3.7
Chloride 106
Carbon Dioxide 22
BUN 19 H
Creatinine 1.3 H
Glucose 72
Calcium 7.7 L
Vital Signs:
Vital Signs
Temp Pulse Resp BP Pulse Ox
98.9 F 111 18 140/84 98
05/27/23 11:00 05/27/23 11:00 05/27/23 11:00 05/27/23 11:00 05/27/23 11:00
I&O
05/26/23 05/27/23 05/28/23
06:59 06:59 06:59
Intake Total 1190 / 1190 2480 / 2480
Output Total 1770 / 1770 1025 / 1025
Balance -580 / -580 1455 / 1455
Review of Systems
-
History Source: Patient
All other systems: Reviewed and negative
Physical Exam
-
General: Well Developed, Well Nourished, No Apparent Distress, Comfortable and Obese
HEENT: Normocephalic, Atraumatic, Moist Mucous Membranes, Nose Appears Normal and Ears Appear Normal
Respiratory: Clear to Auscultation
Cardiac: Regular Rhythm and Tachycardic
GI: Soft
Musculoskeletal: No Clubbing, No Cyanosis and Edema, Left Lower Extrem
Skin: Warm, Dry and Other (wound on abs clean dry and intact); Negative Rash or Ulcers
Neuro: Awake, Alert, Oriented and AO x 3
Psych: Calm
Data Reviewed
-
Labs: Labs Reviewed by me
[2023-05-27 15:10] VITALS: BP 141/86
[2023-05-27 19:02] VITALS: BP 161/80
[2023-05-27] MEDS: VENTOLIN NEBULES 2.5 MG INH (22:44)
[2023-05-27 23:18] VITALS: BP 142/81
[2023-05-28 03:27] VITALS: BP 135/79
[2023-05-28 05:55] VITALS: BMI 32.8
[2023-05-28] MEDS: DILAUDID 0.5 MG IV ×3 (06:28→22:24)
[2023-05-28 07:29] LABS: Hematocrit 30.8 % (37.0-47.0); Mean Corp Hgb Conc. 32.5 g/dL (33.0-37.0); Mean Corpuscular Hgb 32.4 pg (27.0-31.0); Mean Corpuscular Volume 99.7 fL (81.0-99.0); Mean Platelet Volume 10.6 fL (7.4-10.4); Platelet Count 179 10^3/uL (130-400); Red Blood Cell Count 3.09 10^6/uL (4.20-5.40); Red Cell Dist. Width 12.4 % (11.5-14.5); White Blood Cell Count 7.5 10^3/uL (4.8-10.8)
[2023-05-28 07:35] VITALS: BP 137/76
[2023-05-28 08:08] LABS: Blood Urea Nitrogen 20 mg/dl (7-17); Calcium 8.9 mg/dl (8.4-10.2); Carbon Dioxide 19 mmol/L (22-30); Chloride 105 mmol/L (98-107); Estimated Creatinine Clearance 32 ml/min; Glucose 65 mg/dl (70-99); Potassium 3.8 mmol/L (3.5-5.1); Sodium 139 mmol/L (135-145); eGFR 41.83
--- NOTE | 2023-05-28 09:00 | PTCARENOTE ---
After receiving orders to do clamping trial of pt's NGT, pt claims that her NGT fell out when she sneezed. Tape was intact on nose when RN in to see pt minutes before NGT out. Pt was washing at bedside at the time so pin was not attached to gown.
Made Dr. Dhillon aware of above, will continue to monitor closely for any N/V and continued flatus.
--- NOTE | 2023-05-28 09:09 | W.PN.HOSP.TC ---
Today's Communication/Plan
-
see bold
Assessment / Plan
Assessment / Plan
77y F with PMH significant for hypertension, CKD and prior SBO complicated by Annette Farrell tears / GI Bleeding who presented to ED complaining of N/V and hematemesis.�
Patient states that she started with crampy abdominal pain on Monday AM followed by multiple episodes of N/V.� She has had persistent N/V for the past 48 hours.� On Monday evening, patient noted that emesis started to appear grossly bloody.� She
estimates about 1/2 of an emesis bag full of blood in total.�
Patient has prior history of similar episodes.� Her last such episode was 07/2021 and she was admitted here at that time.
Patient was treated in the ED with pain control and antiemetics and her symptoms have improved.� She has had no emesis since arrival here.
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
Gen: NAD, AAOx3.
Eyes: EOMI, PERRLA, no scleral icterus.
Neck: supple.
CV: RRR, +S1/S2, no m/r/g.
Resp: CTAB, no rales, wheezes, or rhonchi.
Abd: +BS, soft, NT to light palpation, mild distention
Skin: No rashes.
Neuro: CN 2-12 intact, non-focal.
Psych: Normal mood and affect.
Intractable N/V secondary to SBO from adhesion:
-s/p NGT placement 05/24/22, clamped now
-s/p laparoscopic lysis of adhesions on 05/26/23
-surgery following
-cont IVFs/pain control/NPO
Acute blood loss anemia hematemesis:
-likely secondary to mucosal injury (Annette-Farrell tear) from intractable N/[place] component of dilutional anemia from IV fluids
-GI following
-hemoglobin stable
-also h/o GERD
-cont PPI IV BID
Other problems:
Essential Hypertension: Home ACEi/BB/HCTZ on hold
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 Farxiga, started just prior to admission, on hold.
Mild Intermittent Asthma: Albuterol PRN
FULL/SCDs
Anticipated Discharge: > 48 hours
Subjective/Interval History
-
Date of Service: May 28, 2023
No complaints. Passing flatus.
Objective Data
-
Labs:
Laboratory Results
05/28/23
06:19
WBC 7.5
Hgb 10.0 L
Hct 30.8 L
Plt Count 179
Sodium 139
Potassium 3.8
Chloride 105
Carbon Dioxide 19 L
BUN 20 H
Creatinine 1.3 H
Glucose 65 L
Calcium 8.9
Vital Signs:
Vital Signs
Temp Pulse Resp BP Pulse Ox
98.7 F 104 16 137/76 96
05/28/23 07:35 05/28/23 07:35 05/28/23 07:35 05/28/23 07:35 05/28/23 07:35
I&O
05/27/23 05/28/23 05/29/23
06:59 06:59 06:59
Intake Total 2480 / 2480 1270 / 1270
Output Total 1025 / 1025 885 / 885
Balance 1455 / 1455 385 / 385
[2023-05-28 09:24] VITALS: BMI 32.8
[2023-05-28] MEDS: DILAUDID 0.25 MG IV (10:18)
[2023-05-28] MEDS: NSS (PRESERVATIVE FREE) 10 ML IV ×2 (10:18→20:20)
[2023-05-28] MEDS: PROTONIX IV 40 MG IV ×2 (10:18→20:20)
[2023-05-28] MEDS: NSS 1000 IV ×2 (11:24→22:05)
[2023-05-28 11:45] VITALS: BP 143/78
--- NOTE | 2023-05-28 12:16 | W.PN.GS2 ---
Today's Communication / Plan
-
NGT clamping trial
Assessment / Plan
-
Assessment: 77 y/o female with recurrent SBO now status POD #3 diagnostic laparoscopy, mini laparotomy and lysis of adhesions. Doing well, expected postoperative course
Continue current pain control regimen.
NG clamping trial today. Okay to remove after 4 hours if residuals less than 250ml. NPO with sips.
Out of bed and ambulate today.
Surgery will continue to follow.
Subjective Data
-
Date of Service: May 28, 2023
Patient states that she is thirsty. She has no pain. She is coughing and her throat hurts due to the NG tube. She has no nausea or vomiting. She has flatus.
Objective Data
-
Intake and Output
05/27/23 05/28/23 05/29/23
06:59 06:59 06:59
Intake Total 2480 / 2480 1270 / 1270
Output Total 1025 / 1025 885 / 885
Balance 1455 / 1455 385 / 385
Intake:
Oral fluids 120 / 120
IV fluids (Total) 2300 / 2300 1000 / 1000
IV piggybacks 0 / 0
Amount instilled into GI Tube ( 180 / 180 150 / 150
Total)
[place] 60 / 60
[place] Sump 180 / 180 90 / 90
Output:
Gastrointestinal tube output ( 450 / 450 105 / 105
Total)
Liang 15 / 15
[place] Sump 450 / 450 90 / 90
Urine, Reyna 125 / 125
Urine, Voided 450 / 450 780 / 780
Vital Signs
Temp Pulse Resp BP Pulse Ox
98.4 F 99 20 143/78 97
05/28/23 11:45 05/28/23 11:45 05/28/23 11:45 05/28/23 11:45 05/28/23 11:45
Lab Results
05/28/23 06:19
05/28/23 06:19
Calcium 8.9 mg/dl (8.4-10.2) 05/28/23 06:19
Magnesium 1.8 mg/dl (1.6-2.3) 05/25/23 07:13
Total Bilirubin 0.6 mg/dl (0.2-1.3) 05/23/23 23:45
AST 27 U/L (14-36) 05/23/23 23:45
ALT 22 U/L (0-35) 05/23/23 23:45
Alkaline Phosphatase 90 U/L (38-126) 05/23/23 23:45
Total Protein 8.0 g/dl (6.3-8.2) 05/23/23 23:45
Albumin 4.8 g/dl (3.5-5.0) 05/23/23 23:45
Physical Exam
-
GENERAL/NEURO: Awake, Alert, no distress
CHEST: Unlabored breathing on RA, NG tube with light bilious/gastric contents.
ABDOMEN: Soft, Non-Tender, a little distended, incisions clean dry and intact.
[2023-05-28 15:28] VITALS: BP 126/75
--- NOTE | 2023-05-28 17:15 | PTCARENOTE ---
Pt up in chair this afternoon and ambulated in hallway with staff. Pt's HR up to 130s with ambulation, asymptomatic. Was going to attempt to advance diet to clear liquids but pt is stating that she hasn't passed flatus since earlier in day. No N/V.
Pt had some abdominal pain requiring Dilaudid this afternoon. Will keep NPO and ice chips and continue to monitor.
[2023-05-28 19:24] VITALS: BP 150/90
[2023-05-28 23:46] VITALS: BP 165/96
[2023-05-29] VITALS (8 sets, daily range): BP systolic 140–161; BP diastolic 79–95; PULSE 109–113; O2SAT 97–98; BMI 34.0
[2023-05-29 06:20] LABS: Hematocrit 33.3 % (37.0-47.0); Hemoglobin 11.1 g/dL (12.0-16.0); Mean Corp Hgb Conc. 33.3 g/dL (33.0-37.0); Mean Corpuscular Hgb 32.7 pg (27.0-31.0); Mean Corpuscular Volume 98.2 fL (81.0-99.0); Mean Platelet Volume 10.4 fL (7.4-10.4); Platelet Count 217 10^3/uL (130-400); Red Blood Cell Count 3.39 10^6/uL (4.20-5.40); Red Cell Dist. Width 12.3 % (11.5-14.5); White Blood Cell Count 7.7 10^3/uL (4.8-10.8)
[2023-05-29 06:36] LABS: Blood Urea Nitrogen 19 mg/dl (7-17); Calcium 8.7 mg/dl (8.4-10.2); Carbon Dioxide 17 mmol/L (22-30); Chloride 110 mmol/L (98-107); Estimated Creatinine Clearance 32 ml/min; Glucose 82 mg/dl (70-99); Potassium 4.7 mmol/L (3.5-5.1); Sodium 137 mmol/L (135-145); eGFR 41.83
--- NOTE | 2023-05-29 07:28 | PTCARENOTE ---
pt states passing flatus and no nausea overnight. Pt agreed on trying clears this AM.
[2023-05-29] MEDS: PROTONIX IV 40 MG IV ×2 (08:06→20:06)
[2023-05-29] MEDS: NSS (PRESERVATIVE FREE) 10 ML IV ×2 (08:06→20:04)
--- NOTE | 2023-05-29 08:55 | W.PN.GS2 ---
Addendum entered and electronically signed by En Myers MD 05/29/23 09:09:
Please restart home metoprolol.
Original Note:
Today's Communication / Plan
-
Clear liquid diet.
Out of bed and ambulate.
Assessment / Plan
-
Assessment: 77 y/o female with recurrent SBO now status POD #4 diagnostic laparoscopy, mini laparotomy and lysis of adhesions. Doing well, now with some return of bowel function, expected postoperative course.
Continue current pain control regimen.
Will start clears today.
Out of bed and ambulate today.
Surgery will continue to follow.
Time Spent
Total Time Spent with Patient (in minutes): 20
Subjective Data
-
Date of Service: May 29, 2023
Interval Events:
No acute events overnight. Slept well. Pain Controlled. Denies Nausea/Vomiting, +bowel function. Tolerating diet.
Objective Data
-
Intake and Output
05/28/23 05/29/23 05/30/23
06:59 06:59 06:59
Intake Total 1270 / 1270 1020 / 1020
Output Total 885 / 885 450 / 450 300 / 300
Balance 385 / 385 570 / 570 -300 / -300
Intake:
Oral fluids 120 / 120 120 / 120
IV fluids (Total) 1000 / 1000 900 / 900
IV piggybacks 0 / 0
Amount instilled into GI Tube ( 150 / 150
Total)
[place] 60 / 60
[place] Sump 90 / 90
Output:
Gastrointestinal tube output ( 105 / 105
Total)
[place] 15 / 15
[place] Sump 90 / 90
Urine, Voided 780 / 780 450 / 450 300 / 300
Vital Signs
Temp Pulse Resp BP Pulse Ox
98.1 F 108 18 153/89 97
05/29/23 07:35 05/29/23 07:35 05/29/23 07:35 05/29/23 07:35 05/29/23 07:35
Lab Results
05/29/23 05:18
05/29/23 05:18
Calcium 8.7 mg/dl (8.4-10.2) 05/29/23 05:18
Magnesium 1.8 mg/dl (1.6-2.3) 05/25/23 07:13
Total Bilirubin 0.6 mg/dl (0.2-1.3) 05/23/23 23:45
AST 27 U/L (14-36) 05/23/23 23:45
ALT 22 U/L (0-35) 05/23/23 23:45
Alkaline Phosphatase 90 U/L (38-126) 05/23/23 23:45
Total Protein 8.0 g/dl (6.3-8.2) 05/23/23 23:45
Albumin 4.8 g/dl (3.5-5.0) 05/23/23 23:45
Physical Exam
-
GENERAL/NEURO: Awake, Alert, no distress
CHEST: Unlabored breathing on RA
ABDOMEN: Soft, Non-Tender, distended, incisions clean dry and intact
--- NOTE | 2023-05-29 09:34 | W.PN.HOSP.TC ---
Today's Communication/Plan
-
see bold
Assessment / Plan
Assessment / Plan
77y F with PMH significant for hypertension, CKD and prior SBO complicated by Annette Farrell tears / GI Bleeding who presented to ED complaining of N/V and hematemesis.�
Patient states that she started with crampy abdominal pain on Monday AM followed by multiple episodes of N/V.� She has had persistent N/V for the past 48 hours.� On Monday evening, patient noted that emesis started to appear grossly bloody.� She
estimates about 1/2 of an emesis bag full of blood in total.�
Patient has prior history of similar episodes.� Her last such episode was 07/2021 and she was admitted here at that time.
Patient was treated in the ED with pain control and antiemetics and her symptoms have improved.� She has had no emesis since arrival here.
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
Gen: NAD, AAOx3.
Eyes: EOMI, PERRLA, no scleral icterus.
Neck: supple.
CV: tachy, reg rhythm, +S1/S2, no m/r/g.
Resp: CTAB, no rales, wheezes, or rhonchi.
Abd: +BS, soft, NT to light palpation, mild distention
Skin: No rashes.
Neuro: CN 2-12 intact, non-focal.
Psych: Normal mood and affect.
Intractable N/V secondary to SBO from adhesion:
-s/p NGT placement 05/24/22, now removed
-s/p laparoscopic lysis of adhesions on 05/26/23
-surgery following
-cont IVFs/pain control
-clears
Acute blood loss anemia hematemesis:
-likely secondary to mucosal injury (Annette-Farrell tear) from intractable N/Valso component of dilutional anemia from IV fluids
-GI following
-hemoglobin stable
-also h/o GERD
-cont PPI IV BID
-cont to monitor non-AG met acidosis. If HCO3- decreases any further will need HCO3- gtt.
Other problems:
Essential Hypertension: Restart BB. Home ACEi/HCTZ remain on hold.
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 Farxiga, started just prior to admission, on hold.
Mild Intermittent Asthma: Albuterol PRN
FULL/SCDs
Anticipated Discharge: 24 - 48 hours
Subjective/Interval History
-
Date of Service: May 29, 2023
No new complaints.
Objective Data
-
Labs:
Laboratory Results
05/29/23
05:18
WBC 7.7
Hgb 11.1 L
Hct 33.3 L
Plt Count 217 D
Sodium 137
Potassium 4.7
Chloride 110 H
Carbon Dioxide 17 L
BUN 19 H
Creatinine 1.3 H
Glucose 82
Calcium 8.7
Vital Signs:
Vital Signs
Temp Pulse Resp BP Pulse Ox
98.1 F 108 18 153/89 97
05/29/23 07:35 05/29/23 07:35 05/29/23 07:35 05/29/23 07:35 05/29/23 07:35
I&O
05/28/23 05/29/23 05/30/23
06:59 06:59 06:59
Intake Total 1270 / 1270 1020 / 1020
Output Total 885 / 885 450 / 450 300 / 300
Balance 385 / 385 570 / 570 -300 / -300
[2023-05-29] MEDS: TOPROL XL 25 MG PO (10:13)
[2023-05-29] MEDS: NSS 1000 IV (13:32)
--- NOTE | 2023-05-29 16:18 | CM ---
CM reviewed chart, ADC 1-2
POD#5, s/p removal of ngt, clears started
VN recommended by PT
CM plan to follow up with patient regarding VN and provider choice
Discharge Disposition- home with VN
[2023-05-29] MEDS: DILAUDID 0.5 MG IV (20:08)
[2023-05-30] VITALS (8 sets, daily range): BP systolic 113–161; BP diastolic 60–95; PULSE 99; BMI 33.1
[2023-05-30] MEDS: NSS 1000 IV (01:51)
[2023-05-30] MEDS: DILAUDID 0.5 MG IV ×2 (03:18→21:13)
[2023-05-30] MEDS: TOPROL XL 25 MG PO (09:07)
[2023-05-30] MEDS: NSS (PRESERVATIVE FREE) 10 ML IV ×2 (09:08→20:06)
[2023-05-30] MEDS: PROTONIX IV 40 MG IV ×2 (09:09→20:06)
--- NOTE | 2023-05-30 09:37 | W.PN.GS2 ---
Today's Communication / Plan
-
-- Clears, awaiting more consistent ROBF
Assessment / Plan
-
Assessment: 77 y/o female with recurrent SBO now status POD #5 diagnostic laparoscopy, mini laparotomy and lysis of adhesions.
Doing well, now with some return of bowel function, expected postoperative course. Hold on clears for today given lack of BM and reports of crampy abdominal pain
-- Clears
-- Continue current pain control regimen.
-- Out of bed and ambulate today.
-- OK for home medications at discretion of Hospitalist
Subjective Data
-
Date of Service: May 30, 2023
Passing flatus, no BM. Tolerated clears yesterday without any nausea or vomiting. She does report some crampy sharp abdominal pain yesterday evening and this morning. Noticed increased swelling in her peripheral extremities and large volumes of
urine.
Objective Data
-
Intake and Output
05/29/23 05/30/23 05/31/23
06:59 06:59 06:59
Intake Total 1020 / 1020 2280 / 2280
Output Total 450 / 450 1700 / 1700
Balance 570 / 570 580 / 580
Intake:
Oral fluids 120 / 120 1380 / 1380
IV fluids (Total) 900 / 900 900 / 900
Output:
Urine, Voided 450 / 450 1700 / 1700
Vital Signs
Temp Pulse Resp BP Pulse Ox
98.1 F 98 18 146/66 100
05/30/23 07:00 05/30/23 09:07 05/30/23 07:00 05/30/23 09:07 05/30/23 07:00
Lab Results
05/29/23 05:18
05/29/23 05:18
Calcium 8.7 mg/dl (8.4-10.2) 05/29/23 05:18
Magnesium 1.8 mg/dl (1.6-2.3) 05/25/23 07:13
Total Bilirubin 0.6 mg/dl (0.2-1.3) 05/23/23 23:45
AST 27 U/L (14-36) 05/23/23 23:45
ALT 22 U/L (0-35) 05/23/23 23:45
Alkaline Phosphatase 90 U/L (38-126) 05/23/23 23:45
Total Protein 8.0 g/dl (6.3-8.2) 05/23/23 23:45
Albumin 4.8 g/dl (3.5-5.0) 05/23/23 23:45
Physical Exam
-
Gen: NAD
Abd: oft, mild tenderness, distended, non-peritoneal, incisions c/d/i - no erythema, ecchymosis or drainage
--- NOTE | 2023-05-30 11:31 | W.PN.HOSP.TC ---
Today's Communication/Plan
-
see bold
Assessment / Plan
Assessment / Plan
77y F with PMH significant for hypertension, CKD and prior SBO complicated by Annette Farrell tears / GI Bleeding who presented to ED complaining of N/V and hematemesis.�
Patient states that she started with crampy abdominal pain on Monday AM followed by multiple episodes of N/V.� She has had persistent N/V for the past 48 hours.� On Monday evening, patient noted that emesis started to appear grossly bloody.� She
estimates about 1/2 of an emesis bag full of blood in total.�
Patient has prior history of similar episodes.� Her last such episode was 07/2021 and she was admitted here at that time.
Patient was treated in the ED with pain control and antiemetics and her symptoms have improved.� She has had no emesis since arrival here.
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
Gen: NAD, AAOx3.
Eyes: EOMI, PERRLA, no scleral icterus.
Neck: supple.
CV: RRR anteriorly, +S1/S2, no m/r/g.
Resp: CTAB, no rales, wheezes, or rhonchi.
Abd: remains +BS, soft, NT to light palpation, mild distention
Skin: No rashes.
Neuro: CN 2-12 intact, non-focal.
Psych: Normal mood and affect.
Intractable N/V secondary to SBO from adhesion:
-s/p NGT placement 05/24/22, now removed
-s/p laparoscopic lysis of adhesions on 05/26/23
-surgery following
-cont pain control
-no need for further IVFs
-clears
Acute blood loss anemia hematemesis:
-likely secondary to mucosal injury (Annette-Farrell tear) from intractable N/Valso component of dilutional anemia from IV fluids
-GI following
-hemoglobin stable
-also h/o GERD
-cont PPI IV BID
-cont to monitor non-AG met acidosis. If HCO3- decreases any further will need HCO3- gtt.
Other problems:
Essential Hypertension: cont BB. Home ACEi/HCTZ remain on hold.
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 Farxiga, started just prior to admission, on hold.
Mild Intermittent Asthma: Albuterol PRN
FULL/SCDs
Anticipated Discharge: 24 - 48 hours
Subjective/Interval History
-
Date of Service: May 30, 2023
No new complaints.
Objective Data
-
Vital Signs:
Vital Signs
Temp Pulse Resp BP Pulse Ox
98.1 F 98 18 146/66 100
05/30/23 07:00 05/30/23 09:07 05/30/23 07:00 05/30/23 09:07 05/30/23 07:00
I&O
05/29/23 05/30/23 05/31/23
06:59 06:59 06:59
Intake Total 1020 / 1020 2280 / 2280
Output Total 450 / 450 1700 / 1700
Balance 570 / 570 580 / 580
[2023-05-30 12:41] LABS: Blood Urea Nitrogen 13 mg/dl (7-17); Calcium 8.8 mg/dl (8.4-10.2); Carbon Dioxide 24 mmol/L (22-30); Chloride 105 mmol/L (98-107); Estimated Creatinine Clearance 70 ml/min; Glucose 98 mg/dl (70-99); Potassium 3.8 mmol/L (3.5-5.1); Sodium 137 mmol/L (135-145); eGFR > 60.00
--- NOTE | 2023-05-30 16:24 | CM ---
Chart reviewed. Spoke with pt
PT recommending home health
Pt offered choice- no preference
Referred to [facility] for home needs
Plan - home with home care - [facility]
[2023-05-31] MEDS: DILAUDID 0.5 MG IV ×2 (02:27→19:36)
[2023-05-31 03:39] VITALS: BP 120/68
[2023-05-31 06:00] VITALS: BMI 33.3
[2023-05-31 07:00] VITALS: BP 142/84
[2023-05-31] MEDS: NSS (PRESERVATIVE FREE) 10 ML IV ×2 (08:18→19:36)
[2023-05-31] MEDS: PROTONIX IV 40 MG IV ×2 (08:18→19:36)
[2023-05-31] MEDS: TOPROL XL 25 MG PO (08:18)
--- NOTE | 2023-05-31 08:28 | W.PN.HOSP.TC ---
Today's Communication/Plan
-
see bold
Assessment / Plan
Assessment / Plan
77y F with PMH significant for hypertension, CKD and prior SBO complicated by Annette Farrell tears / GI Bleeding who presented to ED complaining of N/V and hematemesis.�
Patient states that she started with crampy abdominal pain on Monday AM followed by multiple episodes of N/V.� She has had persistent N/V for the past 48 hours.� On Monday evening, patient noted that emesis started to appear grossly bloody.� She
estimates about 1/2 of an emesis bag full of blood in total.�
Patient has prior history of similar episodes.� Her last such episode was 07/2021 and she was admitted here at that time.
Patient was treated in the ED with pain control and antiemetics and her symptoms have improved.� She has had no emesis since arrival here.
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
Gen: Remains NAD, AAOx3.
Eyes: EOMI, PERRLA, no scleral icterus.
Neck: supple.
CV: RRR, +S1/S2, no m/r/g.
Resp: CTAB anteriorly, no rales, wheezes, or rhonchi.
Abd: Continues to remain +BS, soft, NT to light palpation, mild distention
Skin: No rashes.
Neuro: CN 2-12 intact, non-focal.
Psych: Normal mood and affect.
Intractable N/V secondary to SBO from adhesion:
-s/p NGT placement 05/24/22, now removed
-s/p laparoscopic lysis of adhesions on 05/26/23
-surgery following
-cont pain control
-Now off of IVFs
-Currently on clears. I would be okay advancing to full liquids or even low residue diet today. Will discuss with general surgery.
Acute blood loss anemia hematemesis:
-likely secondary to mucosal injury (Annette-Farrell tear) from intractable N/Valso component of dilutional anemia from IV fluids
-GI following
-hemoglobin stable
-also h/o GERD
-cont PPI IV BID
-non-AG met acidosis now resolved
Other problems:
Essential Hypertension: cont BB. Home ACEi/HCTZ remain on hold.
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 Farxiga, started just prior to admission, on hold.
Mild Intermittent Asthma: Albuterol PRN
FULL/SCDs
Anticipated Discharge: 24 - 48 hours
Subjective/Interval History
-
Date of Service: May 31, 2023
Denies abdominal pain currently. Had 2 episodes of abdominal pain overnight. No bowel movement.
Objective Data
-
Labs:
Laboratory Results
05/31/23
06:48
Sodium Pending
Potassium Pending
Chloride Pending
Carbon Dioxide Pending
BUN Pending
Creatinine Pending
Glucose Pending
Calcium Pending
Vital Signs:
Vital Signs
Temp Pulse Resp BP Pulse Ox
98.6 F 107 18 142/84 97
05/31/23 07:00 05/31/23 07:00 05/31/23 07:00 05/31/23 07:00 05/31/23 07:00
I&O
05/30/23 05/31/23 06/01/23
06:59 06:59 06:59
Intake Total 2280 / 2280 840 / 840
Output Total 1700 / 1700 1800 / 1800
Balance 580 / 580 -960 / -960
[2023-05-31 09:20] LABS: Blood Urea Nitrogen 9 mg/dl (7-17); Calcium 8.2 mg/dl (8.4-10.2); Carbon Dioxide 27 mmol/L (22-30); Chloride 108 mmol/L (98-107); Estimated Creatinine Clearance 38 ml/min; Glucose 101 mg/dl (70-99); Potassium 3.4 mmol/L (3.5-5.1); Sodium 135 mmol/L (135-145); eGFR 51.11
--- NOTE | 2023-05-31 10:11 | W.PN.GS2 ---
Today's Communication / Plan
-
Adv to fulls
Assessment / Plan
-
Assessment: 77 y/o female with recurrent SBO now status POD #6 diagnostic laparoscopy, mini laparotomy and lysis of adhesions.
Doing well, now with some return of bowel function, expected postoperative course. Bowel function slow to return, however has tolerated clears for a few days now without issues.
-- Adv to fulls
-- Continue current pain control regimen.
-- Out of bed and ambulate today.
-- OK for home medications at discretion of Hospitalist
Subjective Data
-
Date of Service: May 31, 2023
AFVSS, ambulating, had an episode of abd pain overnight managed well with IV meds, pain is rare and intermittent at this point, passing flatus, denies n/v
Objective Data
-
Intake and Output
05/30/23 05/31/23 06/01/23
06:59 06:59 06:59
Intake Total 2280 / 2280 840 / 840
Output Total 1700 / 1700 1800 / 1800
Balance 580 / 580 -960 / -960
Intake:
Oral fluids 1380 / 1380 840 / 840
IV fluids (Total) 900 / 900
Output:
Urine, Voided 1700 / 1700 1800 / 1800
Vital Signs
Temp Pulse Resp BP Pulse Ox
98.6 F 107 18 142/84 97
05/31/23 07:00 05/31/23 07:00 05/31/23 07:00 05/31/23 07:00 05/31/23 08:00
Lab Results
05/29/23 05:18
05/31/23 06:48
Calcium 8.2 mg/dl (8.4-10.2) L 05/31/23 06:48
Magnesium 1.8 mg/dl (1.6-2.3) 05/25/23 07:13
Total Bilirubin 0.6 mg/dl (0.2-1.3) 05/23/23 23:45
AST 27 U/L (14-36) 05/23/23 23:45
ALT 22 U/L (0-35) 05/23/23 23:45
Alkaline Phosphatase 90 U/L (38-126) 05/23/23 23:45
Total Protein 8.0 g/dl (6.3-8.2) 05/23/23 23:45
Albumin 4.8 g/dl (3.5-5.0) 05/23/23 23:45
Physical Exam
-
Gen: NAD
Abd: soft, approp ttp, incisions cdi, mild-mod distention
[2023-05-31 11:00] VITALS: BP 149/79
[2023-05-31 15:00] VITALS: BP 146/76
--- NOTE | 2023-05-31 17:37 | CM ---
Started full liquid . She has some upset stomach .
She said [place] a ride [place]
She requested [facility] at [place] . Melodie LIVINGSTON aware.
IMM explained signed on on chart.
PLAN Home with Serge LIVINGSTON
[2023-05-31 19:00] VITALS: BP 152/90
[2023-05-31 23:00] VITALS: BP 164/92
[2023-06-01 03:00] VITALS: BP 124/67
[2023-06-01 06:00] VITALS: BMI 33.2
[2023-06-01 07:35] VITALS: BP 136/73
[2023-06-01 07:40] LABS: Blood Urea Nitrogen 7 mg/dl (7-17); Calcium 8.3 mg/dl (8.4-10.2); Carbon Dioxide 30 mmol/L (22-30); Chloride 107 mmol/L (98-107); Estimated Creatinine Clearance 35 ml/min; Glucose 94 mg/dl (70-99); Potassium 3.5 mmol/L (3.5-5.1); Sodium 137 mmol/L (135-145); eGFR 46.05
[2023-06-01] MEDS: TOPROL XL 25 MG PO ×2 (08:34→11:45)
[2023-06-01] MEDS: PROTONIX IV 40 MG IV ×2 (08:34→20:44)
[2023-06-01] MEDS: NSS (PRESERVATIVE FREE) 10 ML IV ×2 (08:34→20:44)
--- NOTE | 2023-06-01 09:08 | W.PN.GS2 ---
Today's Communication / Plan
-
`
Assessment / Plan
-
Assessment: 77 y/o female with recurrent SBO now status POD #7 diagnostic laparoscopy, mini laparotomy and lysis of adhesions.
AFVSS
+fl/no BM yet
Plan: LR diet for lunch
start bowel regiment - miralax - pt often has constipation at home
awaiting full return of GI function but seems like will be ready for d/c in 24hrs
Subjective Data
-
Date of Service: June 01, 2023
pt seen and examined
leonila PO -fulls
no nausea
no abdominal pain
+flatus, no BM yet but feels like may go today
Objective Data
-
Intake and Output
05/31/23 06/01/23 06/02/23
06:59 06:59 06:59
Intake Total 840 / 840 990 / 990
Output Total 1800 / 1800
Balance -960 / -960 990 / 990
Intake:
Oral fluids 840 / 840 990 / 990
Output:
Urine, Voided 1800 / 1800
Other:
Number of approximated MODERATE 3
amounts of urine
Vital Signs
Temp Pulse Resp BP Pulse Ox
97.5 F 88 18 136/73 99
06/01/23 07:35 06/01/23 07:35 06/01/23 07:35 06/01/23 07:35 06/01/23 07:35
Lab Results
05/29/23 05:18
06/01/23 06:21
Calcium 8.3 mg/dl (8.4-10.2) L 06/01/23 06:21
Magnesium 1.8 mg/dl (1.6-2.3) 05/25/23 07:13
Total Bilirubin 0.6 mg/dl (0.2-1.3) 05/23/23 23:45
AST 27 U/L (14-36) 05/23/23 23:45
ALT 22 U/L (0-35) 05/23/23 23:45
Alkaline Phosphatase 90 U/L (38-126) 05/23/23 23:45
Total Protein 8.0 g/dl (6.3-8.2) 05/23/23 23:45
Albumin 4.8 g/dl (3.5-5.0) 05/23/23 23:45
Physical Exam
-
NAD AAOx3
ABD: softly protuberant, mild incisional tenderness
incision with glue dressings
[2023-06-01] MEDS: MIRALAX 17 GRAMS PO (10:39)
[2023-06-01] MEDS: DILAUDID 0.25 MG IV (10:49)
--- NOTE | 2023-06-01 10:57 | W.PN.HOSP.TC ---
Today's Communication/Plan
-
see bold
Assessment / Plan
Assessment / Plan
77y F with PMH significant for hypertension, CKD and prior SBO complicated by Annette Farrell tears / GI Bleeding who presented to ED complaining of N/V and hematemesis.�
Patient states that she started with crampy abdominal pain on Monday AM followed by multiple episodes of N/V.� She has had persistent N/V for the past 48 hours.� On Monday evening, patient noted that emesis started to appear grossly bloody.� She
estimates about 1/2 of an emesis bag full of blood in total.�
Patient has prior history of similar episodes.� Her last such episode was 07/2021 and she was admitted here at that time.
Patient was treated in the ED with pain control and antiemetics and her symptoms have improved.� She has had no emesis since arrival here.
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
Gen: continues to remain NAD, AAOx3.
Eyes: EOMI, PERRLA, no scleral icterus.
Neck: supple.
CV: RRR, +S1/S2, no m/r/g.
Resp: CTAB anteriorly, no rales, wheezes, or rhonchi.
Abd: +BS, soft, mild TTP, mild distention
Skin: No rashes.
Neuro: CN 2-12 intact, non-focal.
Psych: Normal mood and affect.
Intractable N/V secondary to SBO from adhesion:
-s/p NGT placement 05/24/22, now removed
-s/p laparoscopic lysis of adhesions on 05/26/23
-surgery following
-cont pain control
-Now off of IVFs
-advanced to low residue diet
Acute blood loss anemia hematemesis:
-likely secondary to mucosal injury (Annette-Farrell tear) from intractable N/Valso component of dilutional anemia from IV fluids
-GI following
-hemoglobin stable
-also h/o GERD
-cont PPI IV BID
-non-AG met acidosis now resolved
Other problems:
Essential Hypertension: cont BB. Home ACEi/HCTZ remain on hold.
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 Farxiga, started just prior to admission, on hold.
Mild Intermittent Asthma: Albuterol PRN
FULL/SCDs
Anticipated Discharge: 24 - 48 hours
Subjective/Interval History
-
Date of Service: June 01, 2023
No new complaints.
Objective Data
-
Labs:
Laboratory Results
06/01/23
06:21
Sodium 137
Potassium 3.5
Chloride 107
Carbon Dioxide 30
BUN 7
Creatinine 1.2 H
Glucose 94
Calcium 8.3 L
Vital Signs:
Vital Signs
Temp Pulse Resp BP Pulse Ox
97.5 F 88 18 136/73 99
06/01/23 07:35 06/01/23 07:35 06/01/23 07:35 06/01/23 07:35 06/01/23 08:00
I&O
05/31/23 06/01/23 06/02/23
06:59 06:59 06:59
Intake Total 840 / 840 990 / 990
Output Total 1800 / 1800
Balance -960 / -960 990 / 990
--- NOTE | 2023-06-01 11:24 | CM ---
Advanced to low residual diet.
She said [place] ride [place]
She requested [facility] [place] . Melodie LIVINGSTON aware.She is accepted.
PLAN Home with Taylor LIVINGSTON fax [phone]
[2023-06-01 11:41] VITALS: BP 160/76
[2023-06-01 15:45] VITALS: BP 133/72
[2023-06-01] MEDS: DILAUDID 0.5 MG IV (22:22)
[2023-06-01 23:00] VITALS: BP 138/66
[2023-06-02 06:00] VITALS: BMI 32.8
--- NOTE | 2023-06-02 06:33 | W.PN.HOSP.TC ---
Addendum entered and electronically signed by Christopher Gama MD 06/02/23 08:45:
Case discussed with Dr. Martino and he has cleared the pt for discharge.
Total time spent on d/c = 31 min. This included today's physical exam, progress note, review of laboratory and diagnostic data, preparation of discharge documents and prescriptions, and discussions about the pt's hospital course and discharge plan
with the patient and other director of medical review involved in the patient's care.
Original Note:
Today's Communication/Plan
-
see bold
Assessment / Plan
Assessment / Plan
77y F with PMH significant for hypertension, CKD and prior SBO complicated by Annette Farrell tears / GI Bleeding who presented to ED complaining of N/V and hematemesis.�
Patient states that she started with crampy abdominal pain on Monday AM followed by multiple episodes of N/V.� She has had persistent N/V for the past 48 hours.� On Monday evening, patient noted that emesis started to appear grossly bloody.� She
estimates about 1/2 of an emesis bag full of blood in total.�
Patient has prior history of similar episodes.� Her last such episode was 07/2021 and she was admitted here at that time.
Patient was treated in the ED with pain control and antiemetics and her symptoms have improved.� She has had no emesis since arrival here.
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
Gen: NAD, AAOx3.
Eyes: EOMI, PERRLA, no scleral icterus.
Neck: supple.
CV: Remains RRR, +S1/S2, no m/r/g.
Resp: Remains CTAB anteriorly, no rales, wheezes, or rhonchi.
Abd: +BS, soft, nontender to light palpation, mild distention
Skin: No rashes.
Neuro: CN 2-12 intact, non-focal.
Psych: Normal mood and affect.
Intractable N/V secondary to SBO from adhesion:
-s/p NGT placement 05/24/22, now removed
-s/p laparoscopic lysis of adhesions on 05/26/23
-surgery following
-cont pain control
-Now off of IVFs
-advanced to low residue diet
Acute blood loss anemia hematemesis:
-likely secondary to mucosal injury (Annette-Farrell tear) from intractable N/Valso component of dilutional anemia from IV fluids
-GI following
-hemoglobin stable
-also h/o GERD
-cont PPI IV BID
-non-AG met acidosis now resolved
Other problems:
Essential Hypertension: cont BB. Home ACEi/HCTZ remain on hold.
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 Farxiga, started just prior to admission, on hold.
Mild Intermittent Asthma: Albuterol PRN
FULL/SCDs
Anticipated Discharge: Within 24 hours
Subjective/Interval History
-
Date of Service: June 02, 2023
No new complaints. No bowel movement yet.
Objective Data
-
Labs:
Laboratory Results
06/02/23
06:00
Sodium Pending
Potassium Pending
Chloride Pending
Carbon Dioxide Pending
BUN Pending
Creatinine Pending
Glucose Pending
Calcium Pending
Vital Signs:
Vital Signs
Temp Pulse Resp BP Pulse Ox
98.1 F 92 18 138/66 98
06/01/23 23:00 06/01/23 23:00 06/01/23 23:00 06/01/23 23:00 06/01/23 23:00
I&O
05/31/23 06/01/23 06/02/23
06:59 06:59 06:59
Intake Total 840 / 840 990 / 990 1320 / 1320
Output Total 1800 / 1800
Balance -960 / -960 990 / 990 1320 / 1320
[2023-06-02 07:36] VITALS: BP 132/71
--- NOTE | 2023-06-02 08:31 | W.PN.GS2 ---
Today's Communication / Plan
-
DC home
Assessment / Plan
-
Assessment: 77 y/o female with recurrent SBO now status POD #8 diagnostic laparoscopy, mini laparotomy and lysis of adhesions.
AFVSS
+fl/no BM yet
Plan: LR diet for lunch
cont bowel regiment - miralax - pt often has constipation at home
OK for DC home from surgical standpoint. Advised to continue miralax.
Subjective Data
-
Date of Service: June 02, 2023
No complaints, passing flatus, denies n/v, leonila LRD, pain controlled
Objective Data
-
Intake and Output
06/01/23 06/02/23 06/03/23
06:59 06:59 06:59
Intake Total 990 / 990 1440 / 1440
Balance 990 / 990 1440 / 1440
Intake:
Oral fluids 990 / 990 1440 / 1440
Other:
Number of approximated MODERATE 3 3
amounts of urine
Number of approximated LARGE 3
amounts of urine
Vital Signs
Temp Pulse Resp BP Pulse Ox
98.2 F 86 18 132/71 97
06/02/23 07:36 06/02/23 07:36 06/02/23 07:36 06/02/23 07:36 06/02/23 07:36
Lab Results
05/29/23 05:18
Calcium 8.3 mg/dl (8.4-10.2) L 06/01/23 06:21
Magnesium 1.8 mg/dl (1.6-2.3) 05/25/23 07:13
Total Bilirubin 0.6 mg/dl (0.2-1.3) 05/23/23 23:45
AST 27 U/L (14-36) 05/23/23 23:45
ALT 22 U/L (0-35) 05/23/23 23:45
Alkaline Phosphatase 90 U/L (38-126) 05/23/23 23:45
Total Protein 8.0 g/dl (6.3-8.2) 05/23/23 23:45
Albumin 4.8 g/dl (3.5-5.0) 05/23/23 23:45
Physical Exam
-
Gen: NAD
Abd: soft, aprop ttp, incisions cdi
[2023-06-02 08:37] LABS: Blood Urea Nitrogen 10 mg/dl (7-17); Calcium 8.8 mg/dl (8.4-10.2); Carbon Dioxide 33 mmol/L (22-30); Chloride 103 mmol/L (98-107); Estimated Creatinine Clearance 35 ml/min; Glucose 95 mg/dl (70-99); Potassium 3.7 mmol/L (3.5-5.1); Sodium 138 mmol/L (135-145); eGFR 46.05
--- NOTE | 2023-06-02 09:17 | CM ---
entered order for discharge.
Tolerating low residual diet.
She said she is ready for dc today. Friend Doris will drive her home.
Melodie LIVINGSTON aware.She is accepted.
PLAN Home with Taylor [facility] fax [phone]
[2023-06-02] MEDS: PROTONIX 40 MG PO (09:34)
[2023-06-02] MEDS: MIRALAX 17 GRAMS PO (09:34)
[2023-06-02] MEDS: TOPROL XL 50 MG PO (09:34)
--- NOTE | 2023-06-02 14:24 | W.DCSUMMARY ---
Discharge Summary
Discharge Data
Date of Admission: 05/24/23
Date of Discharge: 06/02/23
-
Pending Results: No
Hospital Course
Primary diagnoses:
Small bowel obstruction due to adhesions s/p laparoscopic lysis of adhesions on 05/26/23
Acute kidney injury on chronic kidney disease stage IIIb
Acute blood loss anemia due to hematemesis due to Annette-Farrell tear due to vomiting
Secondary diagnoses:
None anion gap metabolic acidosis
Essential Hypertension
Mild Intermittent Asthma
Gastroesophageal reflux disease
Obesity due to excess calories
Consultants:
General surgery
Gastroenterology
Imaging:
CT A/P: Mild maximal to mid small bowel dilatation with mid small bowel 'fecal sign' slowly tapering to distal caliber small bowel in the right lower quadrant, findings suggesting partial small bowel obstruction, possibly on the basis of adhesions,
with adjacent surgical clips noted No large bowel obstruction or free air. Findings are somewhat similar to prior CT July 03, 2019. Small hiatal hernia, with small volume contrast seen in the distal esophagus.
Hospital course: 77-year-old female who presented with chief complaints of nausea, vomiting, and hematemesis as outlined in the H&P done on admission. The patient had a CT scan of the abdomen pelvis which was notable for small bowel obstruction in
the basis of adhesions. Patient had an NG tube placed for decompression of her upper GI tract. She was supportive IV fluids and pain medications. She underwent laparoscopic lysis of adhesions on 05/26/23. She had slow return of bowel function.
Her NG tube was eventually removed. Her diet was slowly and progressively advanced and she was tolerating a low residue diet at the time of discharge. Of note the patient had acute blood loss anemia due to hematemesis due to Annette-Farrell tear due
to vomiting. She was seen in consultation by GI. Patient's hemoglobin was stable on discharge. She did not require transfusion while hospitalized.
Discharge Plan
-
Patient Disposition: Home (Routine Discharge)
Discharge Diagnosis/Procedures: Small bowel obstruction due to adhesions s/p laparoscopic lysis of adhesions on 05/26/23, acute kidney injury on chronic kidney disease stage IIIb
Diet: Low Residue and Other diet
Additional Diets: Heart healthy
Activity: As tolerated
Driving Restrictions: As prior to admission
Blood Work: BMP and CBC in 1 week, script from PCP
Referrals:
Artur Song MD [Active] - in two weeks
Nati Dyer MD [Family Provider] - in less than 1 week
Prescriptions:
New
polyethylene glycol 3350 [HealthyLax] 17 gram Powder In Packet
17 g PO DAILY Qty: 0 0RF
metoprolol succinate 50 mg Tablet Extended Release 24 Hr
50 mg PO DAILY Qty: 60 0RF
pantoprazole 40 mg Tablet,Delayed Release (Dr/Ec)
40 mg PO BID Qty: 60 0RF
Continued
multivitamin Tablet
2 tab PO DAILY
famotidine 20 mg Tablet
20 mg PO HS
coenzyme Q10 [Co Q-10] 100 mg Capsule
100 mg PO QPM
rosuvastatin 20 mg Tablet
20 mg PO QPM
fluticasone furoate-vilanterol [Breo Ellipta] 100-25 mcg/dose Blister With Device
1 inh INHALATION R DAILY
polyethylene glycol 3350 [Miralax] 17 gram Powder In Packet
17 g PO DAILY
cyanocobalamin (vitamin B-12) 1,000 mcg Tablet
1,000 mcg PO DAILY
cholecalciferol (vitamin D3) 25 mcg (1,000 unit) Tablet
25 mcg PO DAILY
Discontinued
dapagliflozin propanediol [Farxiga] 10 mg Tablet
10 mg PO DAILY
lisinopril-hydrochlorothiazide 20-12.5 mg Tablet
2 tab PO DAILY
metoprolol succinate 25 mg Tablet Extended Release 24 Hr
25 mg PO DAILY
esomeprazole magnesium [Nexium] 20 mg Capsule,Delayed Release(Dr/Ec)
20 mg PO DAILY
Discharge Orders:
Discharge Patient (As Directed); Ordered 06/02/23
Ordered By: Christopher Gama
Discharge Date and Time
Discharge Date/Time: 06/02/23 12:14
== END 2023-06-02 12:14 | disposition home health service (06) | DRG 335 ==
LOC: 4 EAST ACU 04:51
PROVIDERS: Internal Medicine; Surgery; ADMITTING PHYSICIAN Hospitalist; ATTENDING PHYSICIAN Internal Medicine; CONSULT PHYSICIAN Internal Medicine Gastroenterology; CONSULT PHYSICIAN Surgery; EMERGENCY PHYSICIAN Student in an Organized Health Care Education/Training Program; FAMILY PHYSICIAN Family Medicine
PROC: 0D9670Z Drainage of Stomach with Drainage Device, Via Natural or Artificial Opening (ICD-10-PCS; 2023-05-24)
PROC: 0DNB4ZZ Release Ileum, Percutaneous Endoscopic Approach (ICD-10-PCS; 2023-05-25)
PROC: 0DNU4ZZ Release Omentum, Percutaneous Endoscopic Approach (ICD-10-PCS; 2023-05-25)
PROC: 0DN84ZZ Release Small Intestine, Percutaneous Endoscopic Approach (ICD-10-PCS; 2023-05-25)
DX: K56.51 Intestinal adhesions [bands], with partial obstruction (principal); K22.6 Gastro-esophageal laceration-hemorrhage syndrome; K92.0 Hematemesis; D62 Acute posthemorrhagic anemia; E87.20 Acidosis, unspecified; N17.9 Acute kidney failure, unspecified; I12.9 Hypertensive chronic kidney disease with stage 1 through stage 4 chronic kidney disease, or unspecified chronic kidney disease; K44.9 Diaphragmatic hernia without obstruction or gangrene; K21.9 Gastro-esophageal reflux disease without esophagitis; J45.20 Mild intermittent asthma, uncomplicated; N73.6 Female pelvic peritoneal adhesions (postinfective); E66.09 Other obesity due to excess calories; N18.32 Chronic kidney disease, stage 3b; E78.00 Pure hypercholesterolemia, unspecified; K22.70 Barrett's esophagus without dysplasia; Z85.038 Personal history of other malignant neoplasm of large intestine; Z87.19 Personal history of other diseases of the digestive system; Z87.891 Personal history of nicotine dependence; Z88.8 Allergy status to other drugs, medicaments and biological substances; Z79.51 Long term (current) use of inhaled steroids; Z68.32 Body mass index [BMI] 32.0-32.9, adult
CPT/HCPCS: 74018; 74022; 74176; 80048; 80053; 83735; 84484; 85025; 85027; 86850; 86900; 86901; 93005; 94640; 94760; 96374; 96375; 97116; 97162; 97165; 97530; 99285; J1335

== ENCOUNTER → 2023-06-05 09:00 | Outpatient (REF) | payer OTHER, SELFPAY ==
[2023-06-05 09:47] LABS: % Basophils 0.6 % (0-2); % Eosinophils 5.6 % (0-6); % Immature Granulocytes 0.8 % (0-0.5); % Lymphocytes 21.1 % (20.5-51.1); % Neutrophils 62.9 % (42.2-75.2); Absolute Eosinophils 0.3 10^3/uL (0-0.7); Absolute Lymphocytes 1.1 10^3/uL (1.2-3.4); Absolute Monocytes 0.5 10^3/uL (0.1-0.6); Absolute Neutrophils 3.1 10^3/uL (1.4-6.5); Hematocrit 28.3 % (37.0-47.0); Hemoglobin 9.3 g/dL (12.0-16.0); Mean Corp Hgb Conc. 32.9 g/dL (33.0-37.0); Mean Corpuscular Hgb 32.4 pg (27.0-31.0); Mean Corpuscular Volume 98.6 fL (81.0-99.0); Mean Platelet Volume 9.2 fL (7.4-10.4); Nucleated Red Blood Cells % 0 %; Platelet Count 296 10^3/uL (130-400); Red Blood Cell Count 2.87 10^6/uL (4.20-5.40); Red Cell Dist. Width 12.8 % (11.5-14.5)
[2023-06-05 10:04] LABS: Blood Urea Nitrogen 16 mg/dl (7-17); Iron 73 ug/dl (37-170)
[2023-06-05 10:13] LABS: Percent Saturation 35 % (20-50); Total Iron Binding Capacity 204 ug/dl (265-497)
[2023-06-05 11:13] LABS: Folate > 20.0 ng/ml (2.76-20); Vitamin B12 785 pg/ml (239-931)
== END ==
LOC: REG 09:00
PROVIDERS: ATTENDING PHYSICIAN Nurse Practitioner Adult Health; FAMILY PHYSICIAN Family Medicine
DX: D64.9 Anemia, unspecified (principal); D51.9 Vitamin B12 deficiency anemia, unspecified; D63.1 Anemia in chronic kidney disease
CPT/HCPCS: 36415; 82565; 82607; 82728; 82746; 83540; 83550; 84520; 85025

== ENCOUNTER → 2023-06-07 09:44 | Outpatient (REF) | payer OTHER, SELFPAY ==
[2023-06-07 19:22] LABS: % Basophils 0.6 % (0-2); % Eosinophils 4.1 % (0-6); % Immature Granulocytes 0.2 % (0-0.5); % Lymphocytes 19.1 % (20.5-51.1); Absolute Eosinophils 0.2 10^3/uL (0-0.7); Absolute Lymphocytes 0.9 10^3/uL (1.2-3.4); Absolute Monocytes 0.5 10^3/uL (0.1-0.6); Absolute Neutrophils 3.2 10^3/uL (1.4-6.5); Hematocrit 29.1 % (37.0-47.0); Hemoglobin 9.3 g/dL (12.0-16.0); Mean Corpuscular Hgb 31.8 pg (27.0-31.0); Mean Corpuscular Volume 99.7 fL (81.0-99.0); Mean Platelet Volume 9.6 fL (7.4-10.4); Nucleated Red Blood Cells % 0 %; Platelet Count 336 10^3/uL (130-400); Red Blood Cell Count 2.92 10^6/uL (4.20-5.40); Red Cell Dist. Width 13.3 % (11.5-14.5); White Blood Cell Count 4.8 10^3/uL (4.8-10.8)
[2023-06-07 19:33] LABS: ALT (SGPT) 20 U/L (0-35); AST (SGOT) 24 U/L (14-36); Albumin 3.7 g/dl (3.5-5.0); Alkaline Phosphatase 88 U/L (38-126); Blood Urea Nitrogen 14 mg/dl (7-17); Calcium 9.6 mg/dl (8.4-10.2); Carbon Dioxide 29 mmol/L (22-30); Chloride 102 mmol/L (98-107); Glucose 129 mg/dl (70-99); Sodium 139 mmol/L (135-145); Total Bilirubin 0.4 mg/dl (0.2-1.3); Total Protein 6.2 g/dl (6.3-8.2); eGFR 41.83
== END ==
LOC: CLAB 09:44
PROVIDERS: ATTENDING PHYSICIAN Family Medicine
DX: Z87.19 Personal history of other diseases of the digestive system (principal); D50.0 Iron deficiency anemia secondary to blood loss (chronic)
CPT/HCPCS: 80053; 85025

== ENCOUNTER → 2023-07-11 09:19 | Outpatient (REF) | payer OTHER, SELFPAY ==
[2023-07-11 09:48] LABS: % Basophils 1.1 % (0-2); % Eosinophils 6.2 % (0-6); % Immature Granulocytes 0.3 % (0-0.5); % Lymphocytes 35.2 % (20.5-51.1); % Monocytes 11.8 % (1.7-9.3); % Neutrophils 45.4 % (42.2-75.2); Absolute Eosinophils 0.2 10^3/uL (0-0.7); Absolute Lymphocytes 1.3 10^3/uL (1.2-3.4); Absolute Monocytes 0.4 10^3/uL (0.1-0.6); Absolute Neutrophils 1.6 10^3/uL (1.4-6.5); Hematocrit 32.4 % (37.0-47.0); Hemoglobin 10.8 g/dL (12.0-16.0); Mean Corp Hgb Conc. 33.3 g/dL (33.0-37.0); Mean Corpuscular Volume 96.1 fL (81.0-99.0); Mean Platelet Volume 9.7 fL (7.4-10.4); Nucleated Red Blood Cells % 0 %; Platelet Count 178 10^3/uL (130-400); Red Blood Cell Count 3.37 10^6/uL (4.20-5.40); Red Cell Dist. Width 12.9 % (11.5-14.5); White Blood Cell Count 3.6 10^3/uL (4.8-10.8)
[2023-07-11 10:10] LABS: Blood Urea Nitrogen 21 mg/dl (7-17); Iron 88 ug/dl (37-170)
[2023-07-11 10:20] LABS: Percent Saturation 37 % (20-50); Total Iron Binding Capacity 235 ug/dl (265-497)
== END ==
LOC: REG 09:19
PROVIDERS: ATTENDING PHYSICIAN Nurse Practitioner Adult Health; FAMILY PHYSICIAN Family Medicine
DX: D64.9 Anemia, unspecified (principal); D51.9 Vitamin B12 deficiency anemia, unspecified; D63.1 Anemia in chronic kidney disease
CPT/HCPCS: 36415; 82565; 82728; 83540; 83550; 84520; 85025

== ENCOUNTER → 2023-08-30 08:57 | Outpatient (REF) | payer OTHER, SELFPAY ==
[2023-08-30 10:44] LABS: % Basophils 0.7 % (0-2); % Eosinophils 4.9 % (0-6); % Lymphocytes 36.2 % (20.5-51.1); % Monocytes 9.6 % (1.7-9.3); % Neutrophils 48.6 % (42.2-75.2); Absolute Eosinophils 0.2 10^3/uL (0-0.7); Absolute Lymphocytes 1.5 10^3/uL (1.2-3.4); Absolute Monocytes 0.4 10^3/uL (0.1-0.6); Hematocrit 34.3 % (37.0-47.0); Hemoglobin 11.3 g/dL (12.0-16.0); Mean Corp Hgb Conc. 32.9 g/dL (33.0-37.0); Mean Corpuscular Hgb 31.7 pg (27.0-31.0); Mean Corpuscular Volume 96.3 fL (81.0-99.0); Mean Platelet Volume 10.1 fL (7.4-10.4); Nucleated Red Blood Cells % 0 %; Platelet Count 183 10^3/uL (130-400); Red Blood Cell Count 3.56 10^6/uL (4.20-5.40); Red Cell Dist. Width 12.5 % (11.5-14.5); White Blood Cell Count 4.1 10^3/uL (4.8-10.8)
[2023-08-30 11:19] LABS: ALT (SGPT) 22 U/L (0-35); AST (SGOT) 27 U/L (14-36); Albumin 5.1 g/dl (3.5-5.0); Alkaline Phosphatase 108 U/L (38-126); Blood Urea Nitrogen 40 mg/dl (7-17); Calcium 10.8 mg/dl (8.4-10.2); Carbon Dioxide 26 mmol/L (22-30); Chloride 101 mmol/L (98-107); Glucose 102 mg/dl (70-99); HDL Cholesterol 78 mg/dl; Iron 116 ug/dl (37-170); LDL Cholesterol, Calculated 109 mg/dl; Potassium 4.2 mmol/L (3.5-5.1); Sodium 138 mmol/L (135-145); Total Bilirubin 0.4 mg/dl (0.2-1.3); Total Cholesterol 213 mg/dl (50-199); Total Protein 7.9 g/dl (6.3-8.2); Triglyceride 131 mg/dl (10-149); Very Low Density Lipoprotein 26 mg/dl (0-30); eGFR 38.27
[2023-08-30 11:28] LABS: Percent Saturation 44 % (20-50); Total Iron Binding Capacity 261 ug/dl (265-497)
[2023-08-30 12:06] LABS: Vitamin B12 491 pg/ml (239-931)
[2023-08-30 14:34] LABS: Folate > 20.0 ng/ml (2.76-20)
== END ==
LOC: REG 08:57
PROVIDERS: ATTENDING PHYSICIAN Family Medicine; FAMILY PHYSICIAN Specialist
DX: E78.2 Mixed hyperlipidemia (principal); N18.32 Chronic kidney disease, stage 3b; E53.8 Deficiency of other specified B group vitamins; D63.1 Anemia in chronic kidney disease
CPT/HCPCS: 36415; 80053; 80061; 82607; 82728; 82746; 83540; 83550; 85025

== ENCOUNTER → 2023-09-12 13:27 | Outpatient (REF) | payer OTHER, SELFPAY | LOC: WDC 13:27 | PROVIDERS: ATTENDING PHYSICIAN Family Medicine | DX: Z12.31 Encounter for screening mammogram for malignant neoplasm of breast (principal); M85.89 Other specified disorders of bone density and structure, multiple sites | CPT/HCPCS: 77063; 77067; 77080 ==

== ENCOUNTER → 2023-09-27 09:18 | Outpatient (REF) | payer OTHER, SELFPAY ==
[2023-09-27 12:57] LABS: ALT (SGPT) 18 U/L (0-35); AST (SGOT) 22 U/L (14-36); Albumin 4.5 g/dl (3.5-5.0); Alkaline Phosphatase 94 U/L (38-126); Blood Urea Nitrogen 27 mg/dl (7-17); Calcium 9.6 mg/dl (8.4-10.2); Carbon Dioxide 30 mmol/L (22-30); Chloride 105 mmol/L (98-107); Glucose 87 mg/dl (70-99); Potassium 4.9 mmol/L (3.5-5.1); Sodium 143 mmol/L (135-145); Total Bilirubin 0.3 mg/dl (0.2-1.3); Total Protein 7.3 g/dl (6.3-8.2); eGFR 35.23
== END ==
LOC: REG 09:18
PROVIDERS: ATTENDING PHYSICIAN Family Medicine
DX: E83.52 Hypercalcemia (principal)
CPT/HCPCS: 36415; 80053

== ENCOUNTER → 2024-01-23 09:11 | Outpatient (REF) | payer OTHER, SELFPAY ==
[2024-01-23 10:30] LABS: % Basophils 0.8 % (0-2); % Immature Granulocytes 0.3 % (0-0.5); % Lymphocytes 34.5 % (20.5-51.1); % Monocytes 9.1 % (1.7-9.3); % Neutrophils 49.3 % (42.2-75.2); Absolute Eosinophils 0.2 10^3/uL (0-0.7); Absolute Lymphocytes 1.3 10^3/uL (1.2-3.4); Absolute Monocytes 0.4 10^3/uL (0.1-0.6); Absolute Neutrophils 1.9 10^3/uL (1.4-6.5); Hematocrit 34.9 % (37.0-47.0); Hemoglobin 11.5 g/dL (12.0-16.0); Mean Corpuscular Hgb 30.9 pg (27.0-31.0); Mean Corpuscular Volume 93.8 fL (81.0-99.0); Mean Platelet Volume 10.3 fL (7.4-10.4); Nucleated Red Blood Cells % 0 %; Platelet Count 195 10^3/uL (130-400); Red Blood Cell Count 3.72 10^6/uL (4.20-5.40); Red Cell Dist. Width 12.4 % (11.5-14.5); White Blood Cell Count 3.9 10^3/uL (4.8-10.8)
[2024-01-23 10:57] LABS: Urine Albumin Negative (Neg - Trace); Urine Bilirubin Negative (Negative); Urine Character Clear (Clear); Urine Color Yellow; Urine Glucose Negative (Negative); Urine Ketone Negative (Negative); Urine Leukocyte Negative (Negative); Urine Nitrite Negative (Negative); Urine Occult Blood Negative (Negative); Urine Specific Gravity 1.005 (<1.030); Urine Urobilinogen Negative (Neg - 1+)
[2024-01-23 11:00] LABS: Albumin 4.6 g/dl (3.5-5.0); Blood Urea Nitrogen 33 mg/dl (7-17); Calcium 10.2 mg/dl (8.4-10.2); Carbon Dioxide 30 mmol/L (22-30); Chloride 99 mmol/L (98-107); Glucose 93 mg/dl (70-99); Iron 77 ug/dl (37-170); Phosphorus 3.6 mg/dl (2.5-4.5); Potassium 4.5 mmol/L (3.5-5.1); Sodium 140 mmol/L (135-145); eGFR 30.13
[2024-01-23 11:10] LABS: Percent Saturation 28 % (20-50); Total Iron Binding Capacity 270 ug/dl (265-497)
[2024-01-23 11:19] LABS: Protein/creatinine Ratio 0.2; Urine Protein 11 mg/dl
[2024-01-23 11:24] LABS: Microalbumin, Random Urine <0.6 mg/dl (0.6-1.7)
[2024-01-23 12:06] LABS: Folate > 20.0 ng/ml (2.76-20); Vitamin B12 817 pg/ml (239-931)
[2024-01-24 12:01] LABS: Intact PTH 27.5 pg/ml (13.6-85.8)
== END ==
LOC: REG 09:11
PROVIDERS: ATTENDING PHYSICIAN Specialist; FAMILY PHYSICIAN Family Medicine; REFERRING PHYSICIAN Internal Medicine Hematology & Oncology
DX: N18.32 Chronic kidney disease, stage 3b (principal); D64.9 Anemia, unspecified; D51.9 Vitamin B12 deficiency anemia, unspecified; D63.1 Anemia in chronic kidney disease
CPT/HCPCS: 36415; 80069; 81003; 82043; 82570; 82607; 82728; 82746; 83540; 83550; 83970; 84156; 85025

== ENCOUNTER → 2024-03-06 13:30 | Outpatient (REF) | payer OTHER, SELFPAY | LOC: WDC 13:30 | PROVIDERS: ATTENDING PHYSICIAN Family Medicine | DX: R92.333 Mammographic heterogeneous density, bilateral breasts (principal) | CPT/HCPCS: 76641 ==

== ENCOUNTER → 2024-03-26 10:39 | Outpatient (REF) | payer OTHER, SELFPAY ==
[2024-03-26 12:27] LABS: Blood Urea Nitrogen 26 mg/dl (7-17); Calcium 10.4 mg/dl (8.4-10.2); Carbon Dioxide 30 mmol/L (22-30); Chloride 101 mmol/L (98-107); Glucose 105 mg/dl (70-99); HDL Cholesterol 70 mg/dl; LDL Cholesterol, Calculated 105 mg/dl; Potassium 4.3 mmol/L (3.5-5.1); Sodium 142 mmol/L (135-145); Total Cholesterol 210 mg/dl (50-199); Triglyceride 178 mg/dl (10-149); Very Low Density Lipoprotein 35 mg/dl (0-30); eGFR 30.13
== END ==
LOC: REG 10:39
PROVIDERS: ATTENDING PHYSICIAN Obstetrics & Gynecology; FAMILY PHYSICIAN Family Medicine; REFERRING PHYSICIAN Specialist
DX: I10 Essential (primary) hypertension (principal); E78.01 Familial hypercholesterolemia; N18.31 Chronic kidney disease, stage 3a; D64.9 Anemia, unspecified
CPT/HCPCS: 36415; 80048; 80061

== ENCOUNTER → 2024-06-03 06:22 | Day surgery (SDC) | payer OTHER, SELFPAY | LOC: GI 06:22 | PROVIDERS: ATTENDING PHYSICIAN Internal Medicine Gastroenterology | PROC: 0DB48ZX Excision of Esophagogastric Junction, Via Natural or Artificial Opening Endoscopic, Diagnostic (ICD-10-PCS; 2024-06-03) | PROC: 0DB68ZX Excision of Stomach, Via Natural or Artificial Opening Endoscopic, Diagnostic (ICD-10-PCS; 2024-06-03) | DX: K21.00 Gastro-esophageal reflux disease with esophagitis, without bleeding (principal); K31.7 Polyp of stomach and duodenum; K44.9 Diaphragmatic hernia without obstruction or gangrene | CPT/HCPCS: 43239; 88305 ==

== ENCOUNTER → 2024-06-11 09:52 | Outpatient (REF) | payer OTHER, SELFPAY | LOC: RAD 09:52 | PROVIDERS: ATTENDING PHYSICIAN Internal Medicine Gastroenterology; FAMILY PHYSICIAN Family Medicine | DX: K21.9 Gastro-esophageal reflux disease without esophagitis (principal) | CPT/HCPCS: 74246 ==

== ENCOUNTER → 2024-06-26 09:03 | Outpatient (REF) | payer OTHER, SELFPAY ==
[2024-06-26 10:21] LABS: Albumin 4.9 g/dl (3.5-5.0); Blood Urea Nitrogen 35 mg/dl (7-17); Calcium 10.2 mg/dl (8.4-10.2); Carbon Dioxide 30 mmol/L (22-30); Chloride 99 mmol/L (98-107); Glucose 90 mg/dl (70-99); Phosphorus 3.6 mg/dl (2.5-4.5); Potassium 4.2 mmol/L (3.5-5.1); Sodium 139 mmol/L (135-145); eGFR 38.03
[2024-06-26 10:28] LABS: Intact PTH 25.4 pg/ml (13.6-85.8)
[2024-06-26 10:36] LABS: Microalbumin, Random Urine < 0.6 mg/dl (0.6-1.7)
[2024-06-26 10:37] LABS: Vitamin D, 25-OH*** 75.5 ng/mL (30-80)
[2024-06-28 10:10] LABS: Angiotensin-1-converting Enzym <10 U/L (16-85)
== END ==
LOC: REG 09:03
PROVIDERS: ATTENDING PHYSICIAN Specialist; FAMILY PHYSICIAN Family Medicine
DX: I10 Essential (primary) hypertension (principal); E53.8 Deficiency of other specified B group vitamins; M85.89 Other specified disorders of bone density and structure, multiple sites; D64.9 Anemia, unspecified; Z87.19 Personal history of other diseases of the digestive system; N18.32 Chronic kidney disease, stage 3b; K56.51 Intestinal adhesions [bands], with partial obstruction
CPT/HCPCS: 36415; 80069; 82043; 82164; 82306; 82570; 83970; 84155; 84165

== ENCOUNTER → 2024-07-02 07:10 | Outpatient (REF) | payer OTHER, SELFPAY | LOC: RAD 07:10 | PROVIDERS: ATTENDING PHYSICIAN Internal Medicine Gastroenterology; FAMILY PHYSICIAN Family Medicine | DX: K21.9 Gastro-esophageal reflux disease without esophagitis (principal) | CPT/HCPCS: 78264; A9541 ==

== ENCOUNTER → 2024-07-23 09:01 | Outpatient (REF) | payer OTHER, SELFPAY ==
[2024-07-23 09:42] LABS: % Basophils 0.8 % (0-2); % Eosinophils 5.3 % (0-6); % Immature Granulocytes 0.3 % (0-0.5); % Lymphocytes 33.8 % (20.5-51.1); % Monocytes 12.6 % (1.7-9.3); % Neutrophils 47.2 % (42.2-75.2); Absolute Eosinophils 0.2 10^3/uL (0-0.7); Absolute Lymphocytes 1.3 10^3/uL (1.2-3.4); Absolute Monocytes 0.5 10^3/uL (0.1-0.6); Absolute Neutrophils 1.9 10^3/uL (1.4-6.5); Hematocrit 34.3 % (37.0-47.0); Hemoglobin 11.4 g/dL (12.0-16.0); Mean Corp Hgb Conc. 33.2 g/dL (33.0-37.0); Mean Corpuscular Hgb 31.8 pg (27.0-31.0); Mean Corpuscular Volume 95.5 fL (81.0-99.0); Mean Platelet Volume 9.8 fL (7.4-10.4); Nucleated Red Blood Cells % 0 %; Platelet Count 179 10^3/uL (130-400); Red Blood Cell Count 3.59 10^6/uL (4.20-5.40); Red Cell Dist. Width 12.8 % (11.5-14.5)
[2024-07-23 10:51] LABS: Iron 86 ug/dl (37-170)
[2024-07-23 11:01] LABS: Percent Saturation 33 % (20-50); Total Iron Binding Capacity 255 ug/dl (265-497)
[2024-07-23 11:58] LABS: Folate > 20.0 ng/ml (2.76-20); Vitamin B12 401 pg/ml (239-931)
== END ==
LOC: REG 09:01
PROVIDERS: ATTENDING PHYSICIAN Internal Medicine Hematology & Oncology
DX: D64.9 Anemia, unspecified (principal); D51.9 Vitamin B12 deficiency anemia, unspecified; D63.1 Anemia in chronic kidney disease
CPT/HCPCS: 36415; 82607; 82728; 82746; 83540; 83550; 85025

== ENCOUNTER → 2024-09-13 10:41 | Outpatient (REF) | payer OTHER, SELFPAY | LOC: WDC 10:41 | PROVIDERS: ATTENDING PHYSICIAN Family Medicine | DX: Z12.31 Encounter for screening mammogram for malignant neoplasm of breast (principal) | CPT/HCPCS: 77063; 77067 ==

== ENCOUNTER → 2025-01-28 09:42 | Outpatient (REF) | payer OTHER, SELFPAY ==
[2025-01-28 11:05] LABS: Hematocrit 35.1 % (37.0-47.0); Hemoglobin 11.7 g/dL (12.0-16.0); Mean Corp Hgb Conc. 33.3 g/dL (33.0-37.0); Mean Corpuscular Volume 95.4 fL (81.0-99.0); Nucleated Red Blood Cells % 0 %; Platelet Count 195 10^3/uL (130-400); Red Cell Dist. Width 12.4 % (11.5-14.5)
[2025-01-28 11:44] LABS: Blood Urea Nitrogen 24 mg/dl (7-17); Calcium 10.3 mg/dl (8.4-10.2); Carbon Dioxide 29 mmol/L (22-30); Chloride 101 mmol/L (98-107); Glucose 92 mg/dl (70-99); Iron 90 ug/dl (37-170); Potassium 4.9 mmol/L (3.5-5.1); Sodium 138 mmol/L (135-145); eGFR 29.94
[2025-01-28 11:53] LABS: Total Iron Binding Capacity 271 ug/dl (265-497)
[2025-01-28 12:17] LABS: Ferritin 122.0 ng/ml (11.1-264.0)
== END ==
LOC: REG 09:42
PROVIDERS: ATTENDING PHYSICIAN Internal Medicine Hematology & Oncology; FAMILY PHYSICIAN Specialist
DX: D64.9 Anemia, unspecified (principal); D51.9 Vitamin B12 deficiency anemia, unspecified; D63.1 Anemia in chronic kidney disease; N18.32 Chronic kidney disease, stage 3b
CPT/HCPCS: 36415; 80048; 82728; 83540; 83550; 85025

== ENCOUNTER → 2025-02-20 09:43 | Outpatient (REF) | payer OTHER, SELFPAY ==
[2025-02-20 12:57] LABS: Albumin 4.9 g/dl (3.5-5.0); Blood Urea Nitrogen 43 mg/dl (7-17); Calcium 9.7 mg/dl (8.4-10.2); Carbon Dioxide 30 mmol/L (22-30); Chloride 98 mmol/L (98-107); Glucose 97 mg/dl (70-99); Potassium 4.2 mmol/L (3.5-5.1); Sodium 137 mmol/L (135-145); eGFR 23.23
== END ==
LOC: REG 09:43
PROVIDERS: ATTENDING PHYSICIAN Internal Medicine Cardiovascular Disease
DX: I50.9 Heart failure, unspecified (principal); I10 Essential (primary) hypertension; N18.31 Chronic kidney disease, stage 3a
CPT/HCPCS: 36415; 80069; 83880

== ENCOUNTER → 2025-03-18 09:03 | Outpatient (REF) | payer OTHER, SELFPAY ==
[2025-03-18 10:07] LABS: Urine Character Clear (Clear)
[2025-03-18 10:16] LABS: Urine Red Blood Cell 0-2 /HPF (0-2); Urine White Cell 0-2 /HPF (0-5)
== END ==
LOC: RCS 09:03
PROVIDERS: ATTENDING PHYSICIAN Internal Medicine Cardiovascular Disease; FAMILY PHYSICIAN Family Medicine
DX: I50.9 Heart failure, unspecified (principal); I10 Essential (primary) hypertension; N18.31 Chronic kidney disease, stage 3a; R82.90 Unspecified abnormal findings in urine
CPT/HCPCS: 81003; 81015; 93306

== ENCOUNTER → 2025-03-28 09:01 | Outpatient (REF) | payer OTHER, SELFPAY ==
[2025-03-28 10:20] LABS: Blood Urea Nitrogen 43 mg/dl (7-17); Calcium 9.9 mg/dl (8.4-10.2); Carbon Dioxide 30 mmol/L (22-30); Chloride 101 mmol/L (98-107); Glucose 91 mg/dl (70-99); Potassium 5.3 mmol/L (3.5-5.1); Sodium 136 mmol/L (135-145); eGFR 21.97
== END ==
LOC: REG 09:01
PROVIDERS: ATTENDING PHYSICIAN Nurse Practitioner; FAMILY PHYSICIAN Family Medicine
DX: R60.0 Localized edema (principal); N18.32 Chronic kidney disease, stage 3b
CPT/HCPCS: 36415; 80048

== ENCOUNTER → 2025-04-15 09:25 | Outpatient (REF) | payer OTHER, SELFPAY ==
[2025-04-15 09:51] LABS: Hemoglobin 10.8 g/dL (12.0-16.0)
[2025-04-15 10:45] LABS: Blood Urea Nitrogen 35 mg/dl (7-17); Calcium 9.8 mg/dl (8.4-10.2); Carbon Dioxide 26 mmol/L (22-30); Chloride 100 mmol/L (98-107); Glucose 131 mg/dl (70-99); Potassium 4.1 mmol/L (3.5-5.1); Sodium 137 mmol/L (135-145); eGFR 27.96
== END ==
LOC: REG 09:25
PROVIDERS: ATTENDING PHYSICIAN Internal Medicine Gastroenterology; FAMILY PHYSICIAN Family Medicine; OTHER PHYSICIAN Nurse Practitioner
DX: N18.31 Chronic kidney disease, stage 3a (principal); D64.9 Anemia, unspecified
CPT/HCPCS: 36415; 80048; 85018